=== PATIENT | male | born 1955 | race Caucasian/White ===

== ENCOUNTER 2025-01-18 21:11 | Emergency (ER) | payer MEDICARE, SELFPAY ==
--- OUTSIDE RECORDS SUMMARY | 1999-11-04 10:45 | XMS_ITS | Continuity of Care Document ---
Author Organization [facility] Address [address] [place] [address] Phone Care Team Providers Care Multi Media Specialist Name Role Phone Romeo Mcnally Unavailable Unavailable Advance Directives Directive Yes / No Effective Date File Name No Information Encounters Encounter Description Practice Location Reason(s) For Visit Diagnoses Date Provider Providers Copied on Encounter [facility], [id number] [place] [address] [address], [place], [place], [id number], [place] tel:[phone] [facility] No Information [address] Edward. [address] , [address], [place], [address], [place]. tel:[phone] Family History Family Member Type Diagnosis Age At Onset No Information Payers Payer name Insurance type Covered libertarian ID Authoriza tion(s) No Information Social History Type Description Quantity Date Captured Comments Sex Male Smoking Status No Information Chief Complaint And Reason For Visit No Information Reason For Referral Reason For Referral No Information History Of Present Illness Encounter Date Complaint History Of Prese nt Illness No Information Functional Status Date Functional Assessmen t No Information Instructions Date Instruction Additional Infor mation No Information Assessments Type Assessment Date No Information Patient Care Teams Name Effective Dates (start - stop) Status Members No Information
--- NOTE | ~2025-01-18 | CT_ITS ---
EXAMINATION: CT abdomen pelvis wo con DATE: 01/19/2025 04:09 INDICATION: Flank pain. TECHNIQUE: Computed tomography (CT) of the abdomen and pelvis was performed without intravenous contrast. Automated exposure control and iterative reconstruction technique were employed. The dose-length product was 512.31 mGy-cm. COMPARISON: None. FINDINGS: The visualized portions of the lung bases demonstrate mild atelectasis. No pleural effusion. The heart size is normal. No pericardial effusion. There is a large sliding hiatal hernia. There are cysts in the liver measuring up to 3.5 cm. The gallbladder, spleen, pancreas, adrenal glands, and r ight kidney are normal. There is mild left hydronephrosis. There is a 5 mm stone in proximal left ureter. The prostate is moderately enlarged. There are bilateral inguinal hernias containing fat. There are no dilated loops of bowel. The appendix is normal. There are no pathologically enlarged lymph nodes. There is no free intraperitoneal fluid. There is an umbilical hernia containing fat. There is mild thoracic and lumbar spondylosis. IMPRESSION: 1. 5 mm stone in proximal left ureter with mild left hydronephrosis. 2. Large sliding hiatal hernia. 3. Bilateral inguinal hernias containing fat. 4. Umbilical hernia containing fat. Reviewed, dictated and finalized at location E.
[2025-01-18 21:25] VITALS: BP 143/69; PULSE 75; RESP 18; TEMP 36.8; O2SAT 100
--- NOTE | 2025-01-19 00:50 | ED_ITS ---
HPI - Abdominal Pain General Chief Complaint: Urogenital-Male Stated Complaint: flank pain Time Seen by Provider: 01/19/25 00:43 Source: patient Mode of arrival: ambulatory Limitations: no limitations History of Present Illness HPI narrative: This is a 69 year old male that presents to the ER for left flank pain. Ongoing over the last couple of hours. Reports associated nausea. Reports dark urine. Denies fevers, vomiting, dysuria. Related Data Allergies Allergy/AdvReac Type Severity Reaction Status Date / Time No Known Allergies Allergy Verified 01/19/25 01:24 Review of Systems 2 Review of Systems: All systems reviewed & are unremarkable except as noted in HPI and below PMFSH Past Medical History Medical History (Updated 01/19/25 @ 04:23 by Mary Levi PA-C) Diabetes mellitus Hyperlipidemia Hypertension Exam 2 Narrative: GENERAL: Uncomfortable, well-nourished, and in no acute distress. HEAD: Normocephalic, atraumatic. EYES: EOMI. CHEST: Clear to auscultation. No respiratory distress. No wheezes rales or rhonchi HEART: Regular rate and rhythm. No murmur heard. Normal peripheral pulses. ABDOMEN: Soft, nontender, nondistended, normal active bowel sounds. EXTREMITIES: Normal range of motion. No edema. SKIN: Warm, dry, no rash. NEURO: No focal deficits. Alert and oriented x3. PSYCH: Normal mood and affect Course Vital Signs Vital signs: Vital Signs Temperature 98.2 F 01/18/25 21:25 Pulse Rate 75 01/18/25 21:25 Respiratory Rate 18 01/18/25 21:25 Blood Pressure 143/69 H 01/18/25 21:25 Pulse Oximetry 100 01/18/25 21:25 Oxygen Delivery Room Air 01/18/25 21:25 Temperature 98.2 F 01/18/25 21:25 Pulse Rate 75 01/18/25 21:25 Respiratory Rate 18 01/18/25 21:25 Blood Pressure 143/69 H 01/18/25 21:25 Pulse Oximetry 100 01/18/25 21:25 Oxygen Delivery Room Air 01/18/25 21:25 MDM - Abdominal Pain MDM Narrative Medical decision making narrative: Patient presents emergency department for left abdominal/flank pain. He is afebrile and nontoxic appearing. His vitals are stable. CBC with mild leukocytosis. Metabolic panel with normal appearing kidney function. Urine without evidence of infection. Shows red blood cells. CT abdomen pelvis showing stone in the mid left ureter. Patient updated on his workup and agrees with plan of care. We given follow-up with urology. He was given warnings to return to the ER Differential Diagnosis Differential diagnosis: Likely calculus of kidney and other (UTI) Lab Data Attestation: I reviewed the patient's lab results. 01/19/25 00:57 01/19/25 00:57 Labs: Lab Results 01/19/25 Range/Units 00:57 WBC 13.5 H (4.5-10.0) K/mm3 RBC 5.14 (4.6-6.20) M/mm3 Hgb 15.5 (14.0-18.0) g/dL Hct 45.5 (42.0-52.0) % MCV 88.5 (80-100) fl MCH 30.2 (26-34) pg MCHC 34.1 (32-36) g/dl RDW 11.9 (11.5-14.5) % Plt Count 181 (150-375) k/mm3 MPV 10.0 (7.4-10.4) fl Immature Gran % (Auto) 0.3 (0-0.5) % Neut % (Auto) 86.2 H (45.5-73.1) % Lymph % (Auto) 7.0 L (18.3-44.2) % [place] % (Auto) 6.1 (2.6-8.5) % Eos % (Auto) 0.1 (0-4.4) % Baso % (Auto) 0.3 (0.2-1.2) % Lymph # (Auto) 0.95 (0.9-3.2) K/mm3 [place] # (Auto) 0.8 H (0.1-0.6) K/mm3 Eos # (Auto) 0.0 (0-0.3) K/mm3 Baso # (Auto) 0.0 (0.0-0.1) K/mm3 Abs Immat Gran (auto) 0.04 H (0.00-0.031) K/mm3 Absolute Neuts (auto) 11.7 H (1.3-6.7) K/mm3 Absolute Nucleated RBC 0.000 (0.0-0.012) K/mm3 Nucleated RBC % 0.0 (0.0-0.2) % Sodium 139 (137-145) mmol/L Potassium 4.4 (3.4-5.0) mmol/L Chloride 103 (98-107) mmol/L Carbon Dioxide 22 (22-30) mmol/L Anion Gap 14 H (4-12) mmol/L BUN 23 H (9-20) mg/dL Creatinine 1.23 (0.7-1.3) mg/dL Estim Creat Clear Calc 66 ml/min Estimated GFR 59 (59 - ) Glucose 206 H (65-110) mg/dL Calcium 10.3 H (8.4-10.2) mg/dL Total Bilirubin 1.1 (0.2-1.3) mg/dL AST 37 (17-59) U/L ALT 28 (6-50) U/L Alkaline Phosphatase 75 (38-126) U/L Total Protein 7.4 (6.3-8.2) g/dL Albumin 4.4 (3.5-5.1) g/dL Urine Color Yellow (Yellow) Urine Appearance Cloudy H (Clear) Urine pH 6.0 (5.0-9.0) Ur Specific [place] 1.028 (1.001-1.035) Urine Protein 2+ H (Negative) mg/dL Urine Glucose (UA) Negative (Negative) mg/dL Urine Ketones 1+ H (Negative) mg/dL Ur Blood (Man) 3+ H (Negative) Urine Nitrate Negative (Negative) Urine Bilirubin Negative (Negative) Urine Urobilinogen 1.0 (<2.0) mg/dL Add Ur Microanalysis Reviewed Leukocyte Esterase Rfl Negative (Negative) CATHERINE/UL Urine RBC >100 H (0-2) /hpf Urine WBC 0-5 (0-3) /hpf Ur Squamous Epith Cells None seen (Few) /hpf Calcium Oxalate Crystal Present (None) /hpf Urine Bacteria None seen /hpf Urine Casts 0-2 Imaging Data My impression: CT abd/pelvis: Left 4mm mid ureteral stone. Large hiatal hernia Radiologist's impression: ITS Impressions Abdomen/Pelvis CT 01/19/25 07:05 IMPRESSION: 1. 5 mm stone in proximal left ureter with mild left hydronephrosis. 2. Large sliding hiatal hernia. 3. Bilateral inguinal hernias containing fat. 4. Umbilical hernia containing fat. Critical Care Time Critical Care Time Critical Care Time: No Discharge Plan Discharge Clinical Impression: Ureterolithiasis Patient Disposition: Home Condition: Improved Instructions: Kidney Stones (ED), How to Strain Your Urine (ED) Additional Instructions: Return to the ER if you experience fever, abdominal pain with nausea and vomiting, you are unable to keep down liquids or solids, blood in the stool, pain or burning with urination, blood in the urine or any other symptoms that are concerning to you Remain well hydrated. [id number] pain medication as needed. Prescribed pain medication as needed. Continue tamsulosin. Strain your urine Follow up with Urology Patient Language: Yoruba Prescriptions: New hydrocodone-acetaminophen 5-325 mg tablet 1 tablet PO Q6H PRN (Reason: pain) Qty: 20 0RF Follow-up/Referrals: Brent Flores MD [Physician, Urology] UNKNOWN,DOCTOR [Non-Staff]
[2025-01-19 01:07] LABS: Hematocrit 45.5 % (42.0-52.0); Hemoglobin 15.5 g/dL (14.0-18.0); Immature Granulocyte Percent A 0.3 % (0-0.5); Lymphocytes Absolute Auto 0.95 K/mm3 (0.9-3.2); Mean Corpuscular HGB Conc 34.1 g/dl (32-36); Mean Corpuscular Hemoglobin 30.2 pg (26-34); Mean Corpuscular Volume 88.5 fl (80-100); Nucleated Red Blood Cells Absolute Auto 0.000 K/mm3 (0.0-0.012); Nucleated Red Blood Cells Perc 0.0 % (0.0-0.2); Platelet Count Result 181 k/mm3 (150-375); Red Blood Count 5.14 M/mm3 (4.6-6.20); White Blood Count 13.5 K/mm3 (4.5-10.0)
[2025-01-19] MEDS: ONDANSETRON INJ 4 MG/2 ML VIAL IV PUSH (01:14)
[2025-01-19] MEDS: MORPHINE SULFATE (*CRX) 4 MG/ML INJ IV PUSH (01:14)
[2025-01-19 01:21] LABS: Add Urine Microscopic? YES; Appearance Urine Cloudy (Clear); Glucose Urine UA Negative (Negative); Leukocyte Esterase Ur Negative LEU/UL (Negative); Need Manual Microscopic Reviewed; Nitrate Urine Negative (Negative); Non Pathogenic Casts 0-2; Specific Grav Ur 1.028 (1.001-1.035)
[2025-01-19 01:23] LABS: Alanine Aminotransferase 28 U/L (6-50); Albumin Level 4.4 g/dL (3.5-5.1); Alkaline Phosphatase 75 U/L (38-126); Anion Gap 14 mmol/L (4-12); Aspartate Amino Transferase 37 U/L (17-59); Bilirubin,Total 1.1 mg/dL (0.2-1.3); Blood Urea Nitrogen 23 mg/dL (9-20); Calcium 10.3 mg/dL (8.4-10.2); Carbon Dioxide 22 mmol/L (22-30); Chloride 103 mmol/L (98-107); Estimated CRCL calculation 66 ml/min; Estimated Glomerular Filt Rate 59; Glucose 206 mg/dL (65-110); Potassium 4.4 mmol/L (3.4-5.0); Sodium 139 mmol/L (137-145); Total Protein 7.4 g/dL (6.3-8.2)
--- OUTSIDE RECORDS SUMMARY | 2025-01-19 01:43 | XMS_ITS | Encounter Summary ---
Author Organization [facility] Address [address] [place] [address] Care Team Providers Care Running Instructor Name Role Phone Jared Levin MD Primary Care Provider [phone] Encounter Details Date Type Department Care Team (Late st Contact Info) Description 12/21/2024 Results Follow-Up [facility] Family Medicine at [address] [place] [address] Jared Levin MD [address] [place] [address] [address] [place] [address] CBC with auto differential, Comprehensive metabolic panel, Lipid panel, Additional followed-up results: 2 Social History Tobacco Use Types Packs/Day Years Used Date Smoking Tobacco: Never Smokeless Tobacco: Never AUDIT-C Answer Date Recorded Q1: How often do you have a drink containing alc ohol? Monthly or less 09/05/2024 Q2: How many drinks containi ng alcohol do you have on a typical day when you are drinking? 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
--- OUTSIDE RECORDS SUMMARY | 2025-01-19 01:43 | XMS_ITS | Data Portability ---
Author Organization [facility] [employer] [facility], [employer] Address [address] [place] [address] Care Team Providers Care Plumbing Assembler Name Role Phone STEPHANIE ABERNATHY Primary Care Provider REJI FUENTES [employer]ic [phone] Assessment Encounter Date Assessment Date Assessment LastModified by Organization Details LastModified Time 06/05/2020 06/05/2020 Patient presente d for follow up. Studies ordered as below. Discussed plan with patient/caregiver , who expressed understanding. Follow up as noted below. Not available 06/05/2020 10:25:10 09/29/2020 09/29/2020 Patient presente d for follow up. Studies ordered as below. Discussed plan with patient/caregiver , who expressed understanding. Follow up as noted below. Not available 09/29/2020 08:55:14 03/31/2021 03/31/2021 Patient presente d for follow up. Studies ordered as below. Discussed plan with patient/caregiver , who expressed understanding. Follow up as noted below. Not available 03/31/2021 15:36:38 10/13/2021 10/13/2021 Patient presente d for follow up. Studies ordered as below. Discussed plan with patient/caregiver , who expressed understanding. Follow up as noted below. Not available 10/13/2021 09:40:01 03/31/2022 03/31/2022 Patient presente d for follow up. Studies ordered as below. Discussed plan with patient/caregiver , who expressed understanding. Follow up as noted below. Patient presented to office today for their Medicare Annual Wellness Visit. Education was provided on healthy nutrition, including a diet rich in fruits and vegetables, minimizing simple carbohydrates, salt, and saturated fats. Encouraged regular cardiovascular exercise such as walking at least 30 minutes daily, 5 times per week. Emphasized preventive health measures and educated pt on fall prevention and community-based lifestyle interventions to help reduce health risks and promote healthy living. Not available 03/31/2022 09:24:16 Plan of Treatment Reminders Order Date Submit Date Provider Last Modified By Organization Details Last Modified Time Details Appointments None recorded. Lab PSA, serum or plasma 2021 [facility], [address], [address], [place], [address], 16:12:33 CBC w/ auto diff 2021 [facility], 2022 [address]ova, [address], [place], [address], 16:12:30 CMP, serum or plasma 2021 [facility], 2022 Sh[address]ova, [address], [place], [address], 16:12:31 HbA1c (hemoglobi n A1c), blood 2021 [facility], 2022 [address]ova, [address], [place], [address], 16:12:34 C-peptide, serum 2021 [facility], 2022 [address]ova, [address], [place], [address], 16:12:35 albumin/cr eatinine, mass ratio, urine 2021 [facility], 2022 [address]ova, [address], [place], [address], 16:12:33 TSH + free T4, serum 2021 [facility], 2022 [address]ova, [address], [place], [address], 3 16:12:29 lipid panel w/ direct LDL, serum 2021 [facility], 2022 Sh[address]ova, [address], [place], [address], 3 16:12:32 vitamin D, 25-hydroxy , total, serum 2021 [facility], 2022 [address]ova, [address], [place], [address], 3 16:12:36 HbA1c (hemoglobi n A1c), blood 2021 [facility], 2022 Sh[address] Cordova, [address], [place], [address], 5 13:08:07 CMP, serum or plasma 2021 022 [facility], 2022 Shayna Cordova, [address], [place], [address], 2 13:39:25 C-peptide, serum 2021 [facility], 2022 Sh[address]ova, [address], [place], [address], 2 13:39:25 lipid panel w/ direct LDL, serum 2020 021 [facility], 2022 Shayna Cordova, [address], [place], [address], 1 09:37:42 PSA, serum or plasma 2020 [facility], 2022 Sh[address]ova, [address], [place], [address], 1 09:37:44 microalbum in/creatin ine, mass ratio, urine 2020 [facility], [address], [address], [place], [address], 09:37:43 CMP, serum or plasma 2020 [facility], 20[address]ova, [address], [place], [address], 09:37:41 HbA1c (hemoglobi n A1c), blood 2020 [facility], 20[address], [address], [place], [address], 09:37:45 TSH, ultra-sens itive, serum 2020 [facility], 2022 Sh[address]ova, [address], [place], [address], 09:37:45 T4, free, serum 2020 [facility], 2022 Sh[address]ova, [address], [place], [address], 09:37:47 vitamin D, 25-hydroxy , total, serum 2020 [facility], 2022 [address]ova, [address], [place], [address], 09:37:46 lipid panel w/ direct LDL, serum 2020 [facility], 2022 Sh[address] Cordova, [address], [place], [address], 1 07:37:11 TSH, ultra-sens itive, serum 2020 [facility], 20[address]ova, [address], [place], [address], 1 07:37:11 CBC w/ auto diff 2020 021 [facility], 2022 [address]ova, [address], [place], [address], 1 07:37:09 CMP, serum or plasma 2020 021 [facility], 2022 Sh[address]ova, [address], [place], [address], 1 07:37:10 vitamin D, 25-hydroxy , total, serum 2020 021 [facility], 2022 [address]ova, [address], [place], [address], 1 07:37:12 testostero ne, free + total, serum 2020 021 [facility], 2022 [address]ova, [address], [place], [address], 1 07:37:12 Referral gastroente rologist referral 2021 022 ewa Fuentes MD, [address], [address], [place], [address], 5 13:08:34 ophthalmol ogist referral 2020 021 [facility], [address], [place], [address], 2 08:30:37 Procedures None recorded. Surgeries None recorded. Imaging electrocar diogram 2021 022 [facility] [employer], [address] [facility] [address] , [address], [place], [address], 2 17:44:04 XR, cervical spine [address] [place] [address] (Imaging), [address], [place], [address], 09:23:39 CT, head, w/o contrast [address] [place] [address] (Imaging), [address], [place], [address], 09:30:37 Medication Orders metformin 500 mg tablet 2021 022 [facility] [address], [address], [place], [address], 09:48:53 atorvastat in 40 mg tablet 2020 [facility] [address], [address], [place], [address], 15:57:53 ezetimibe 10 mg tablet 2020 [facility] [address], [address], [place], [address], 15:57:49 tamsulosin 0.4 mg capsule 2020 [facility] [address], [address], [place], [address], 15:57:49 lisinopril 5 mg tablet 2020 [facility] [address], [address], [place], [address], 15:57:48 aspirin 81 mg tablet,del ayed release 2020 [facility] [address], [address], [place], [address], 15:57:51 metformin 500 mg tablet 2020 [facility] [address], [address], [place], [address], 15:57:51 pantoprazo le 40 mg tablet,del ayed release 2020 [facility] [address], [address], [place], [address], 09:41:50 paroxetine 30 mg tablet 2020 [facility] [address], [address], [place], [address], 15:57:50 Vitamin D3 125 mcg (5,000 unit) tablet 2020 [facility] [address], [address], [place], [address], 15:57:47 atorvastat in 40 mg tablet 2020 [facility] [address], [address], [place], [address], 09:23:11 ezetimibe 10 mg tablet 2020 [facility] [address], [address], [place], [address], 09:23:13 tamsulosin 0.4 mg capsule 2020 [facility] [address], [address], [place], [address], 09:23:15 lisinopril 5 mg tablet 2020 [facility] [address], [address], [place], [address], 09:23:13 aspirin 81 mg tablet,del ayed release 2020 021 [facility] [address], [address], [place], [address], 09:23:19 metformin 500 mg tablet 2020 021 [facility] [address], [address], [place], [address], 09:23:12 pantoprazo le 40 mg tablet,del ayed release 2020 021 [facility] [address], [address], [place], [address], 09:41:50 paroxetine 30 mg tablet 2020 021 [facility] [address], [address], [place], [address], 09:23:12 Vitamin D3 125 mcg (5,000 unit) tablet 2020 021 [facility] [address], [address], [place], [address], 09:23:16 Patient TargetsNo targets recorded. Patient Instructions Encounter Date Encounter Id Patient Instructions Last Modified By Organization Details Last Modified Time 06/05/2020 [id number] neck pain: care instructions mshenouda Not available 06/05/2020 10:41:41 learning about a closed head injury mshenouda Not available 06/05/2020 10:41:41 09/29/2020 [id number] body mass index: care instructions mshenouda Not available 09/29/2020 09:22:58 learning about healthy weight [place]hen[place]da Not available 09/29/2020 09:22:58 03/31/2021 [id number] advised to lose weight [facility] Not available 03/31/2021 15:57:41 10/13/2021 [id number] body mass index: care instructions mshenouda Not available 10/13/2021 10:31:39 learning about healthy weight mshenouda Not available 10/13/2021 10:31:39 03/31/2022 [id number] diverticulosis: care instructions ms[place]da Not available 03/31/2022 09:48:45 learning about diverticulosis and diverticulitis mshenouda Not available 03/31/2022 09:48:46 medicare preventive services guide mshenouda Not available 03/31/2022 09:48:45 advance care planning: care instructions mshenouda Not available 03/31/2022 09:48:45 high cholesterol : care instructions mshenouda Not available 03/31/2022 09:48:46 cluster headache : care instructions mshenouda Not available 03/31/2022 09:48:46 body mass index: care instructions mshenouda Not available 03/31/2022 09:48:46 learning about healthy weight mshenouda Not available 03/31/2022 09:48:45 Discussed and explained advance directives such as standard forms to the patient. Face to face discussion lasted for a duration of _3__ minutes. mshenouda Not available 03/31/2022 09:38:38 Reason for Referral [employer] Specialist Referral for Diabetes mellitus Referring Physician: Tushar Shetty, Internal Medicine, Encounter Date: 03/31/2021 [employer]ic Referral for Screening for malignant neoplasm of colon Referring Physician: Stephanie Abernathy, Internal Medicine, Encounter Date: 10/13/2021 Results Created Date Observation Date Name Description Value Unit Range Abnormal Flag Note LastModifiedBy Organization Detail LastModifiedTime 06/06/19 21 06/06/2020 testo stero ne, free + total , serum testosterone , serum 196 NG/dL 264-91 6 below low normal Adult male refer ence inter silvia is based on a popul ation of healt hy nonob marielle males (BMI <30) betwe en 19 and 39 years old. Cherelle salguero et.al . JCEM 2017, 102;1 161-1 173. PMID: 77596 103. Not Available [facility] ([facility]) [address] [facility], [place], [address], 06/10/2020 07:37:12 06/06/1906/10/2020 testo stero ne, free + total , serum free testosterone (direct) 2.9 pg/mL 6.6-18 .1 below low normal Not Available [facility] ([facility]) [address], [place], [address], 06/10/2020 07:37:12 09/30/19 21 09/30/2020 CBC WITH DIFFE RENTI AL/PL ATELE T WBC 6.8 x10e3 /uL 3.4-10 .8 Not Available [facility] ([facility]) [address] [place], [address], 09/30/2020 07:37:09 09/30/1909/30/2020 CBC WITH DIFFE RENTI AL/PL ATELE T RBC 5.27 x10e6 /uL 4.14-5 .80 Not Available [facility] ([facility]) [address] [facility], [place], [address], 09/30/2020 07:37:09 09/30/1909/30/2020 CBC WITH DIFFE RENTI AL/PL ATELE T hemoglobin 15.4 g/dL 13.0-1 7.7 Not Available [facility] ([facility]) [address] [place], [address], 09/30/2020 07:37:09 09/30/1909/30/2020 CBC WITH DIFFE RENTI AL/PL ATELE T hematocrit 47.1 % 37.5-5 1.0 Not Available [facility] ([facility]) [address] [place], [address], 09/30/2020 07:37:09 09/30/1909/30/2020 CBC WITH DIFFE RENTI AL/PL ATELE T MCV 89 fL 79-97 Not Available [facility] ([facility]) [address] [place], [address], 09/30/2020 07:37:09 09/30/19 21 09/30/2020 CBC WITH DIFFE RENTI AL/PL ATELE T MCH 29.2 pg 26.6-3 3.0 Not Available [facility] ([facility]) [address] [facility] [facility], [place], [address], 09/30/2020 07:37:09 09/30/19 21 09/30/2020 CBC WITH DIFFE RENTI AL/PL ATELE T MCHC 32.7 g/dL 31.5-3 5.7 Not Available [facility] ([facility]) [address] [facility], [place], [address], 09/30/2020 07:37:09 09/30/19 21 09/30/2020 CBC WITH DIFFE RENTI AL/PL ATELE T RDW 11.9 % 11.6-1 5.4 Not Available [facility] ([facility]) [address] [facility] [facility], [place], [address], 09/30/2020 07:37:09 09/30/19 21 09/30/2020 CBC WITH DIFFE RENTI AL/PL ATELE T platelets 213 x10e3 /uL 150-45 0 Not Available [facility] ([facility]) [address] [facility] [facility], [place], [address], 09/30/2020 07:37:09 09/30/1909/30/2020 CBC WITH DIFFE RENTI AL/PL ATELE T neutrophils 67 % not estab. Not Available [facility] ([facility]) [address] [facility], [place], [address], 09/30/2020 07:37:09 09/30/1909/30/2020 CBC WITH DIFFE RENTI AL/PL ATELE T lymphs 24 % not estab. Not Available [facility] ([facility]) [address] [place], [address], 09/30/2020 07:37:09 09/30/19 21 09/30/2020 CBC WITH DIFFE RENTI AL/PL ATELE T monocytes 7 % not estab. Not Available [facility] ([facility]) [address] [place], [address], 09/30/2020 07:37:09 09/30/19 21 09/30/2020 CBC WITH DIFFE RENTI AL/PL ATELE T eos 2 % not estab. Not Available [facility] ([facility]) [address] [facility] [facility], [place], [address], 09/30/2020 07:37:09 09/30/1909/30/2020 CBC WITH DIFFE RENTI AL/PL ATELE T basos 0 % not estab. Not Available [facility] ([facility]) [address] [facility], [place], [address], 09/30/2020 07:37:09 09/30/1909/30/2020 CBC WITH DIFFE RENTI AL/PL ATELE T immature cells ADVICE NURSE Not Available [facility] ([facility]) [address] [place], [address], 09/30/2020 07:37:09 09/30/19 21 09/30/2020 CBC WITH DIFFE RENTI AL/PL ATELE T neutrophils (absolute) 4.5 x10e3 /uL 1.4-7. 0 Not Available [facility] ([facility]) [address] [facility], [place], [address], 09/30/2020 07:37:09 09/30/19 21 09/30/2020 CBC WITH DIFFE RENTI AL/PL ATELE T lymphs (absolute) 1.6 x10e3 /uL 0.7-3. 1 Not Available [facility] ([facility]) [address] [place], [address], 09/30/2020 07:37:09 09/30/19 21 09/30/2020 CBC WITH DIFFE RENTI AL/PL ATELE T monocytes(ab solute) 0.5 x10e3 /uL 0.1-0. 9 Not Available [facility] ([facility]) [address] [facility], [place], [address], 09/30/2020 07:37:09 09/30/19 21 09/30/2020 CBC WITH DIFFE RENTI AL/PL ATELE T eos (absolute) 0.1 x10e3 /uL 0.0-0. 4 Not Available [facility] ([facility]) [address] [facility], [place], [address], 09/30/2020 07:37:09 09/30/19 21 09/30/2020 CBC WITH DIFFE RENTI AL/PL ATELE T baso (absolute) 0.0 x10e3 /uL 0.0-0. 2 Not Available [facility] ([facility]) [address] [facility], [place], [address], 09/30/2020 07:37:09 09/30/19 21 09/30/2020 CBC WITH DIFFE RENTI AL/PL ATELE T immature granulocytes 0 % not estab. Not Available [facility] ([facility]) [address] [facility] [facility], [place], [address], 09/30/2020 07:37:09 09/30/19 21 09/30/2020 CBC WITH DIFFE RENTI AL/PL ATELE T immature grans (abs) 0.0 x10e3 /uL 0.0-0. 1 Not Available [facility] ([facility]) [address] [facility] [facility], [place], [address], 09/30/2020 07:37:09 09/30/1909/30/2020 CBC WITH DIFFE RENTI AL/PL ATELE T NRBC ADVICE NURSE Not Available [facility] ([facility]) [address] [facility], [place], [address], 09/30/2020 07:37:09 09/30/19 21 09/30/2020 CBC WITH DIFFE CARL[place] AL/PL ATELE T hematology comments: ADVICE NURSE Not Available [facility] ([facility]) [address] [facility], [place], [address], 09/30/2020 07:37:09 09/30/19 21 09/30/2020 COMP. METAB OLIC PANEL (14) glucose 113 mg/dL 65-99 above high normal Not Available [facility] ([facility]) [address] [facility], [place], [address], 09/30/2020 07:37:10 09/30/19 21 09/30/2020 COMP. METAB OLIC PANEL (14) BUN 15 mg/dL 8-27 Not Available [facility] ([facility]) [address] [facility], [place], [address], 09/30/2020 07:37:10 09/30/19 21 09/30/2020 COMP. METAB OLIC PANEL (14) creatinine 0.85 mg/dL 0.76-1 .27 Not Available [facility] ([facility]) [address] [facility] [facility], [place], [address], 09/30/2020 07:37:10 09/30/19 21 09/30/2020 COMP. METAB OLIC PANEL (14) eGFR if nonafricn AM 93 mL/mi n/1.7 3 >59 Not Available [facility] ([facility]) [address] [place], [address], 09/30/2020 07:37:10 09/30/19 21 09/30/2020 COMP. METAB OLIC PANEL (14) eGFR if africn AM 107 mL/mi n/1.7 3 >59 Lab delia curre ntly repor ts eGFR in compl iance with the curre nt recom menda tions of the [facility] ation . [facility] will updat e repor ting as new guide lines are publi shed from the NKF-A SN Task force . Not Available [facility] ([facility]) [address] [facility], [place], [address], 09/30/2020 07:37:10 09/30/19 21 09/30/2020 COMP. METAB OLIC PANEL (14) BUN/creatini ne ratio 18 10-24 Not Available [facility] ([facility]) [address] [facility], [place], [address], 09/30/2020 07:37:10 09/30/19 21 09/30/2020 COMP. METAB OLIC PANEL (14) sodium 142 mmol/ L 134-14 4 Not Available [facility] ([facility]) [address] [facility] [place], [address], 09/30/2020 07:37:10 09/30/19 21 09/30/2020 COMP. METAB OLIC PANEL (14) potassium 4.3 mmol/ L 3.5-5. 2 Not Available [facility] ([facility]) [address] [facility] [facility], [place], [address], 09/30/2020 07:37:10 09/30/19 21 09/30/2020 COMP. METAB OLIC PANEL (14) chloride 104 mmol/ L 96-106 Not Available [facility] ([facility]) [address] [facility], [place], [address], 09/30/2020 07:37:10 09/30/19 21 09/30/2020 COMP. METAB OLIC PANEL (14) carbon dioxide, total 25 mmol/ L 20-29 Not Available [facility] ([facility]) [address] [facility], [place], [address], 09/30/2020 07:37:10 09/30/19 21 09/30/2020 COMP. METAB OLIC PANEL (14) calcium 9.8 mg/dL 8.6-10 .2 Not Available [facility] ([facility]) [address] [facility] [facility], [place], [address], 09/30/2020 07:37:10 09/30/19 21 09/30/2020 COMP. METAB OLIC PANEL (14) protein, total 7.0 g/dL 6.0-8. 5 Not Available [facility] ([facility]) [address], [place], [address], 09/30/2020 07:37:10 09/30/19 21 09/30/2020 COMP. METAB OLIC PANEL (14) albumin 4.4 g/dL 3.8-4. 8 Not Available [facility] ([facility]) [address], [place], [address], 09/30/2020 07:37:10 09/30/19 21 09/30/2020 COMP. METAB OLIC PANEL (14) globulin, total 2.6 g/dL 1.5-4. 5 Not Available [facility] ([facility]) [address], [place], [address], 09/30/2020 07:37:10 09/30/19 21 09/30/2020 COMP. METAB OLIC PANEL (14) A/G ratio 1.7 1.2-2. 2 Not Available [facility] ([facility]) [address], [place], [address], 09/30/2020 07:37:10 09/30/19 21 09/30/2020 COMP. METAB OLIC PANEL (14) bilirubin, total 0.8 mg/dL 0.0-1. 2 Not Available [facility] ([facility]) [address], [place], [address], 09/30/2020 07:37:10 09/30/19 21 09/30/2020 COMP. METAB OLIC PANEL (14) alkaline phosphatase 82 IU/L 48-121 Not Available [facility] ([facility]) [address], [place], [address], 09/30/2020 07:37:10 09/30/19 21 09/30/2020 COMP. METAB OLIC PANEL (14) AST (SGOT) 14 IU/L 0-40 Not Available [facility] ([facility]) [address] [place], [address], 09/30/2020 07:37:10 09/30/19 21 09/30/2020 COMP. METAB OLIC PANEL (14) ALT (SGPT) 15 IU/L 0-44 Not Available [facility] ([facility]) [address] [place], [address], 09/30/2020 07:37:10 09/30/19 21 09/30/2020 LP+LD L DIREC T cholesterol, total 149 mg/dL 100-19 9 Not Available [facility] ([facility]) [address] [place], [address], 09/30/2020 07:37:11 09/30/19 21 09/30/2020 LP+LD L DIREC T triglyceride s 180 mg/dL 0-149 above high normal Not Available [facility] ([facility]) [address] [place], [address], 09/30/2020 07:37:11 09/30/19 21 09/30/2020 LP+LD L DIREC T HDL cholesterol 52 mg/dL >39 Not Available [facility] ([facility]) [address] [place], [address], 09/30/2020 07:37:11 09/30/19 21 09/30/2020 LP+LD L DIREC T VLDL cholesterol aliza 30 mg/dL 5-40 Not Available [facility] ([facility]) [address] [place], [address], 09/30/2020 07:37:11 09/30/19 21 09/30/2020 LP+LD L DIREC T LDL chol calc ([facility]) 67 mg/dL 0-99 Not Available [facility] ([facility]) [address], [place], [address], 09/30/2020 07:37:11 09/30/19 21 09/30/2020 LP+LD L DIREC T comment: ADVICE NURSE Not Available [facility] ([facility]) [address] [place], [address], 09/30/2020 07:37:11 09/30/1909/30/2020 LP+LD L DIREC T LDL chol. (direct) 76 mg/dL 0-99 Not Available [facility] ([facility]) [address] [facility] [place] [place], [address], 09/30/2020 07:37:11 09/30/1909/30/2020 TSH TSH 3.190 uIU/m L 0.450- 4.500 Not Available [facility] ([facility]) [address] [facility] [place], [address], 09/30/2020 07:37:11 09/30/19 21 09/30/2020 VITAM IN D, 25-HY DROXY vitamin D, 25-hydroxy 40.5 NG/mL 30.0-1 00.0 Vitam in D defic iency has been defin ed by the Insti tute of Medic ine and an Endoc rine Socie ty pract ice guide line as a level of serum 25-OH vitam in D less than 20 ng/mL (1,2) . The Endoc rine Socie ty went on to [facility] er defin e vitam in D insuf ficie ncy as a level betwe en 21 and 29 ng/mL (2). 1. IOM (Inst itute of Medic ine). 2010. Dieta ry refer ence mamadou es for calci um and D. Tiffanie crocker [place]: The [facility] Press . 2. Chiara palmer [place], Ghassan ey [place], Cordelia off-F errar i CUNHA, et al. Evalu ation , treat ment, and preve ntion of vitam in D defic iency : an Endoc rine Socie ty clini aliza pract ice guide line. JCEM. 2010; 96(7) :1911 -30. Not Available [facility] ([facility]) [address] [facility], [place], [address], 09/30/2020 07:37:12 04/01/20 21 04/02/2021 COMP. METAB OLIC PANEL (14) glucose 118 mg/dL 65-99 above high normal Not Available [facility] ([facility]) [address] [facility] [place], [address], 04/02/2021 09:37:41 04/01/20 21 04/02/2021 COMP. METAB OLIC PANEL (14) BUN 19 mg/dL 8-27 Not Available [facility] ([facility]) [address] [facility] [place], [address], 04/02/2021 09:37:41 04/01/20 21 04/02/2021 COMP. METAB OLIC PANEL (14) creatinine 0.92 mg/dL 0.76-1 .27 Not Available [facility] ([facility]) [address] [facility] [place], [address], 04/02/2021 09:37:41 04/01/20 21 04/02/2021 COMP. METAB OLIC PANEL (14) eGFR if nonafricn AM 88 mL/mi n/1.7 3 >59 Not Available [facility] ([facility]) [address] [place], [address], 04/02/2021 09:37:41 04/01/20 21 04/02/2021 COMP. METAB OLIC PANEL (14) eGFR if africn AM 102 mL/mi n/1.7 3 >59 In accor dance with recom menda tions from the NKF-A SN Task force , [facility] sandoval is in the proce ss of updat ing its eGFR calcu latio n to the 2020 CKD-E PI creat inine equat ion that estim ates kidne y funct ion witho ut a race varia ble. Not Available [facility] ([facility]) [address] [facility], [place], [address], 04/02/2021 09:37:41 04/01/20 21 04/02/2021 COMP. METAB OLIC PANEL (14) BUN/creatini ne ratio 21 10-24 Not Available [facility] ([facility]) [address] [facility], [place], [address], 04/02/2021 09:37:41 04/01/20 21 04/02/2021 COMP. METAB OLIC PANEL (14) sodium 142 mmol/ L 134-14 4 Not Available [facility] ([facility]) [address] [facility], [place], [address], 04/02/2021 09:37:41 04/01/20 21 04/02/2021 COMP. METAB OLIC PANEL (14) potassium 4.4 mmol/ L 3.5-5. 2 Not Available [facility] ([facility]) [address] [facility], [place], [address], 04/02/2021 09:37:41 04/01/20 21 04/02/2021 COMP. METAB OLIC PANEL (14) chloride 105 mmol/ L 96-106 Not Available [facility] ([facility]) [address] [place], [address], 04/02/2021 09:37:41 04/01/20 21 04/02/2021 COMP. METAB OLIC PANEL (14) carbon dioxide, total 22 mmol/ L 20-29 Not Available [facility] ([facility]) [address] [place], [address], 04/02/2021 09:37:41 04/01/20 21 04/02/2021 COMP. METAB OLIC PANEL (14) calcium 9.6 mg/dL 8.6-10 .2 Not Available [facility] ([facility]) [address] [place], [address], 04/02/2021 09:37:41 04/01/20 21 04/02/2021 COMP. METAB OLIC PANEL (14) protein, total 6.9 g/dL 6.0-8. 5 Not Available [facility] ([facility]) [address] [place], [address], 04/02/2021 09:37:41 04/01/20 21 04/02/2021 COMP. METAB OLIC PANEL (14) albumin 4.3 g/dL 3.8-4. 8 Not Available [facility] ([facility]) [address] [place], [address], 04/02/2021 09:37:41 04/01/20 21 04/02/2021 COMP. METAB OLIC PANEL (14) globulin, total 2.6 g/dL 1.5-4. 5 Not Available [facility] ([facility]) [address] [place], [address], 04/02/2021 09:37:41 04/01/20 21 04/02/2021 COMP. METAB OLIC PANEL (14) A/G ratio 1.7 1.2-2. 2 Not Available [facility] ([facility]) [address] [place], [address], 04/02/2021 09:37:41 04/01/20 21 04/02/2021 COMP. METAB OLIC PANEL (14) bilirubin, total 0.8 mg/dL 0.0-1. 2 Not Available [facility] ([facility]) [address] [place], [address], 04/02/2021 09:37:41 04/01/20 21 04/02/2021 COMP. METAB OLIC PANEL (14) alkaline phosphatase 72 IU/L 44-121 Ple ase note refer ence inter silvia ruiz e Not Available [facility] ([facility]) [address] [place], [address], 04/02/2021 09:37:41 04/01/20 21 04/02/2021 COMP. METAB OLIC PANEL (14) AST (SGOT) 15 IU/L 0-40 Not Available [facility] ([facility]) [address] [place], [address], 04/02/2021 09:37:41 04/01/20 21 04/02/2021 COMP. METAB OLIC PANEL (14) ALT (SGPT) 14 IU/L 0-44 Not Available [facility] ([facility]) [address] [place], [address], 04/02/2021 09:37:41 04/01/20 21 04/02/2021 LP+LD L DIREC T cholesterol, total 144 mg/dL 100-19 9 Not Available [facility] ([facility]) [address] [place], [address], 04/02/2021 09:37:42 04/01/20 21 04/02/2021 LP+LD L DIREC T triglyceride s 83 mg/dL 0-149 Not Available [facility] ([facility]) [address] [place], [address], 04/02/2021 09:37:42 04/01/20 21 04/02/2021 LP+LD L DIREC T HDL cholesterol 54 mg/dL >39 Not Available [facility] ([facility]) [address] [place], [address], 04/02/2021 09:37:42 04/01/20 21 04/02/2021 LP+LD L DIREC T VLDL cholesterol aliza 16 mg/dL 5-40 Not Available [facility] ([facility]) [address] [place], [address], 04/02/2021 09:37:42 04/01/20 21 04/02/2021 LP+LD L DIREC T LDL chol calc (nih) 74 mg/dL 0-99 Not Available [facility] ([facility]) [address] [facility], [place], [address], 04/02/2021 09:37:42 04/01/20 21 04/02/2021 LP+LD L DIREC T comment: ADVICE NURSE Not Available [facility] ([facility]) [address] [facility], [place], [address], 04/02/2021 09:37:42 04/01/20 21 04/02/2021 LP+LD L DIREC T LDL chol. (direct) 76 mg/dL 0-99 Not Available [facility] ([facility]) [address] [facility], [place], [address], 04/02/2021 09:37:42 04/01/20 21 04/02/2021 ALBUM IN/CR EAT RATIO , RANDO M UR creatinine, urine 218.6 mg/dL not estab. Not Available [facility] ([facility]) [address] [facility], [place], [address], 04/02/2021 09:37:43 04/01/20 21 04/02/2021 ALBUM IN/CR EAT RATIO , RANDO M UR albumin, urine 7.7 ug/mL not estab. Not Available [facility] ([facility]) [address] [place], [address], 04/02/2021 09:37:43 04/01/20 21 04/02/2021 ALBUM IN/CR EAT RATIO , RANDO M UR alb/creat ratio 4 mg/g_ creat 0-29 Lesley l: 0 - 29 Moder ately incre ased: 30 - 300 Sever lisa incre ased: >300 Not Available [facility] ([facility]) [address] [facility], [place], [address], 04/02/2021 09:37:43 04/01/20 21 04/01/2021 PSA TOTAL (REFL EX TO FREE) reflex criteria Commen t The perce nt free PSA is perfo rmed on a refle x basis only when the total PSA is betwe en 4.0 and 10.0 ng/mL . Not Available [facility] ([facility]) [address] [facility], [place], [address], 04/02/2021 09:37:44 04/01/20 21 04/02/2021 PSA TOTAL (REFL EX TO FREE) prostate specific Ag 3.3 NG/mL 0.0-4. 0 Sofie ECLIA metho dolog y. Accor ding to the Ameri can Urolo gical Assoc iatio n, Serum PSA shoul d decre ase and remai n at undet ectab le level s after radic al prost atect gloria. The AUA defin es bioch emica l recur rence as an initi al PSA value 0.2 ng/mL or great er follo wed by a subse quent confi rmato ry PSA value 0.2 ng/mL or great er. Value s obtai ledy with diffe rent assay metho ds or kits canno t be used inter ruiz eably . Resul ts canno t be inter prete d as absol leslie evide nce of the prese nce or absen ce of marlene ramsay se. Not Available [facility] ([facility]) [address] [facility], [place], [address], 04/02/2021 09:37:44 04/01/2004/02/2021 HEMOG LOBIN A1C hemoglobin A1C 6.0 % 4.8-5. 6 above high normal Predi abete s: 5.7 - 6.4 Diabe arnold: >6.4 Glyce gerardo contr ol for adult s with diabe arnold: <7.0 Not Available [facility] ([facility]) [address] [facility], [place], [address], 04/02/2021 09:37:45 04/01/20 21 04/02/2021 TSH TSH 3.210 uIU/m L 0.450- 4.500 Not Available [facility] ([facility]) [address] [facility], [place], [address], 04/02/2021 09:37:45 04/01/20 21 04/02/2021 VITAM IN D, 25-HY DROXY vitamin D, 25-hydroxy 38.6 NG/mL 30.0-1 00.0 Vitam in D defic iency has been defin ed by the Insti tute of Medic ine and an Endoc rine Socie ty pract ice guide line as a level of serum 25-OH vitam in D less than 20 ng/mL (1,2) . The Endoc rine Socie ty went on to furth er defin e vitam in D insuf ficie ncy as a level betwe en 21 and 29 ng/mL (2). 1. IOM (Inst itute of Medic ine). 2010. Jimbo ry refer ence intak es for calci um and D. Tiffanie crocker [place]: The [facility] . 2. Chiara palmer MF, Ghassan echevarria [place], Cordelia off-F errar i CUNHA, et al. Evalu ation , treat ment, and preve ntion of vitam in D defic iency : an Endoc rine Socie ty clini aliza pract ice guide line. JCEM. 2010; 96(7) :1911 -30. Not Available [facility] ([facility]) [address] [facility], [place], [address], 04/02/2021 09:37:46 04/01/20 21 04/02/2021 T4,FR EE(DI RECT) T4,free(dire ct) 1.23 NG/dL 0.82-1 .77 Not Available [facility] ([facility]) [address] [facility], [place], [address], 04/02/2021 09:37:47 10/14/19 22 10/13/2021 HEMOG LOBIN A1C HGBA1C 6.1 % 4.0-6. 0 high Not Available [facility] (Main Location) [address] ,, [place], [address], 10/14/2021 13:39:24 10/14/19 22 10/13/2021 CMP (COMP REHEN SIVE METAB OLIC PANEL ) glucose 101 mg/dL 74-99 high Not Available [facility] (Main Location) [facility] [address] ,, [place], [address], 10/14/2021 13:39:25 10/14/19 22 10/13/2021 CMP (COMP REHEN SIVE METAB OLIC PANEL ) urea nitrogen, blood (BUN) 16 mg/dL 8-23 Not Available [facility] (Main Location) [address] [place], [place] [address] ,, [place], [address], 10/14/2021 13:39:25 10/14/19 22 10/13/2021 CMP (COMP REHEN SIVE METAB OLIC PANEL ) total bilirubin 0.8 mg/dL 0.0-1. 2 Not Available [facility] (Main Location) [address] [place], [place] [address] ,, [place], [address], 10/14/2021 13:39:25 10/14/19 22 10/13/2021 CMP (COMP REHEN SIVE METAB OLIC PANEL ) total protein 7.2 g/dL 6.6-8. 7 Not Available [facility] (Main Location) [address] [place], [place] [address] ,, [place], [address], 10/14/2021 13:39:25 10/14/19 22 10/13/2021 CMP (COMP REHEN SIVE METAB OLIC PANEL ) alanine aminotransfe rase (ALT) 14 U/L 0-41 Not Available [facility] (Main Location) [address] [place], [place] [address] ,, [place], [address], 10/14/2021 13:39:25 10/14/19 22 10/13/2021 CMP (COMP REHEN SIVE METAB OLIC PANEL ) alkaline phosphatase 88 U/L 40-130 Not Available [facility] (Main Location) [address] [place] [address] [address] ,, [place], [address], 10/14/2021 13:39:25 10/14/19 22 10/13/2021 CMP (COMP REHEN SIVE METAB OLIC PANEL ) aspartate aminotransfe rase (AST) 13 U/L 0-40 Not Available [facility] (Main Location) [facility] [address] ,, [place], [address], 10/14/2021 13:39:25 10/14/19 22 10/13/2021 CMP (COMP REHEN SIVE METAB OLIC PANEL ) calcium 10.0 mg/dL 8.6-10 .2 Not Available [facility] (Main Location) [facility] [address] ,, [place], [place], [address], 10/14/2021 13:39:25 10/14/19 22 10/13/2021 CMP (COMP REHEN SIVE METAB OLIC PANEL ) albumin 4.6 g/dL 3.5-5. 2 Not Available [facility] (Main Location) [facility] [address] ,, [place], [address], 10/14/2021 13:39:25 10/14/19 22 10/13/2021 CMP (COMP REHEN SIVE METAB OLIC PANEL ) CO2 24 mmol/ L 23-31 Not Available [facility] (Main Location) [facility] [address] ,, [place], [address], 10/14/2021 13:39:25 10/14/19 22 10/13/2021 CMP (COMP REHEN SIVE METAB OLIC PANEL ) creatinine, serum 1.0 mg/dL 0.7-1. 2 Not Available [facility] (Main Location) [facility] [address] ,, [place], [address], 10/14/2021 13:39:25 10/14/19 22 10/13/2021 CMP (COMP REHEN SIVE METAB OLIC PANEL ) sodium, serum 142 mmol/ L 136-14 5 Not Available [facility] (Main Location) [address] [place], [place] [address] ,, [place], [address], 10/14/2021 13:39:25 10/14/19 22 10/13/2021 CMP (COMP REHEN SIVE METAB OLIC PANEL ) potassium, serum 4.4 mmol/ L 3.5-5. 1 Not Available [facility] (Main Location) [address] ,, [place], [address], 10/14/2021 13:39:25 10/14/19 22 10/13/2021 CMP (COMP REHEN SIVE METAB OLIC PANEL ) chloride, serum 105 mmol/ L 98-107 Not Available [facility] (Main Location) [address] ,, [place], [address], 10/14/2021 13:39:25 10/14/19 22 10/13/2021 CMP (COMP REHEN SIVE METAB OLIC PANEL ) eGFR 85 >59 Persi stent reduc tion for 3 month s or more in an eGFR <60 mL/mi n/1.7 3 m2 defin es CKD. Patie nts with eGFR value s>/=6 0 mL/mi n/1.7 3 m2 may also have CKD if evide nce of persi stent protu niuri a is prese nt. Addit ional infor chrystal kennedy may be found at www.k doqi. org. Not Available [facility] (Main Location) [address] ,, [place], [address], 10/14/2021 13:39:25 04/13/19 23 04/14/2022 HEMOG LOBIN A1C hemoglobin A1C 6.0 % 4.8-5. 6 above high normal Predi abete s: 5.7 - 6.4 Diabe arnold: >6.4 Glyce gerardo contr ol for adult s with diabe arnold: <7.0 Not Available [facility] ([facility]) [address], [place], [address], 04/14/2022 16:12:34 04/13/19 23 04/14/2022 C-PEP TIDE, SERUM C-peptide, serum 8.7 NG/mL 1.1-4. 4 above high normal C-Pep tide refer ence inter silvia is for fasti ng patie nts. Not Available [facility] ([facility]) [address], [place], [address], 04/14/2022 16:12:35 10/14/19 22 11/10/2021 elect rocar diogr am No observ ation record ed. [address], [place], [address], 03/31/2022 09:45:51 10/14/19 22 10/13/2021 elect rocar diogr am No observ ation record ed. [address], [place], [address], 03/31/2022 09:45:51 Result Notes None recorded. Problems Name Problem SNOMED Code Status Onset Date Resolution Date Notes Provider Name and Address Organization Details Recorded Time Anxiety 15165028 Leanna wolfe [facility] 6 08:37:51 Benign prostatic hyperplas ia without outflow obstructi on [id number] Leanna wolfe [facility] 6 08:37:58 Diabetes mellitus 47737444 Active diet control Stephanie Abernathy MD [address], [place], [address] , [facility] 6 17:15:28 Diverticu lar disease of colon 912855420 Leanna wolfe [facility] 6 08:38:15 Esophagea l reflux finding 127265921 Leanna wolfe [facility] 6 08:38:26 Benign hypertens ion 17118914 Leanna wolfe [facility] 6 08:38:35 Hyperlipi demia 59062141 Leanna wolfe [facility] 6 08:38:43 Hypogonad ism 99502040 Leanna Lockett [facility] 6 08:39:00 Cluster headache 507800391 Active 2016 MD Renee Smith [address], [place], [address] , [facility] 7 17:21:41 Vitamin D deficienc y 09712970 Active 2017 MD Renee Smith [address], [place], [address] , [facility] 8 16:58:22 Body mass index 30+ - obesity 902486279 Active 2018 MD Renee Smith [address], [place], [address] , [facility] 9 09:41:03 Mixed hyperlipi demia 847975747 Active 2020 MD Renee Smith [address], [place], [address] , [facility] 1 09:22:07 History of SARS-CoV- 2 071119120588 237644 Active 2021 MD Renee Smith [address], [place], [address] , [facility] 2 09:36:45 Problem Notes None recorded. Procedures Surgical History Date Name Laterality Status Provider Name and Address Organization Details Recorded Time 03/31/20 Diabetic Foot Exam completed MD Renee Smith [address], [place], [address], [facility] 03/31/2022 09:43:13 01/18/20 Colonoscopy completed MD Renee Smith [address], [place], [address], [facility] 01/23/2022 15:50:41 10/14/19 Diabetic Foot Exam completed MD Renee Smith [address], [place], [address], [facility] 10/13/2021 10:30:45 09/30/19 21 Diabetic Foot Exam completed MD Renee Smith [address], [place], [address], [facility] 09/29/2020 09:25:30 03/31/20 20 Diabetic Foot Exam completed MD Renee Smith [address], [place], [address], [facility] 03/31/2020 09:20:13 01/03/20 20 Diabetic Foot Exam completed MD Renee Smith [address], [place], [address], [facility] 01/03/2020 12:47:46 03/30/20 18 Diabetic Foot Exam completed MD Renee Smith [facility] [address], [place], [address], [facility] 03/30/2018 15:41:29 12/29/19 18 Diabetic Foot Exam completed MD Renee Smith [facility] [address], [place], [address], [facility] 12/28/2017 17:07:47 09/10/19 17 Colonoscopy completed BOB KAPOOR [facility] 06/05/2020 10:28:03 12/15/19 13 Colonoscopy completed Cathryn Gregg [facility] 12/25/2015 08:36:50 Tonsillectomy completed Cathryn Gregg [facility] 12/25/2015 08:36:57 Imaging Results None recorded. Procedure Notes None recorded. Medical Equipment None Reported. Allergies No known drug allergies Medications Name Sig Start Date Stop Date Status Note LastModified by Organization Details LastModified Time binaxnow cov kit home arnold 03/31 completed Not Available Not Available Not Available atorvastat in 40 mg tablet TAKE 1 TABLET BY MOUTH ONCE DAILY AT BEDTIME 2022 active Not Available Not Available Not Avai lable metformin 500 mg tablet Take 1 tablet by mouth twice daily 2022 active Not Available Not Available Not Avai lable atorvastat in 20 mg tablet TAKE 1 TABLET BY MOUTH AT BEDTIME 01/04 completed Not Available Not Available Not Available sucralfate 1 gram tablet TAKE 1 TABLET BY MOUTH THREE TIMES A DAY FOR 1 MONTH DIRECTED . 09/29 completed Not Available Not Available Not Available Medrol (Mono) 4 mg tablets in a dose pack Take 1 dose pk by oral route as directed . 07/24 completed Not Available Not Available Not Available aspirin 81 mg tablet,del ayed release TAKE 1 TABLET BY MOUTH IN THE MORNING active Not Available Not Available No t Available tamsulosin 0.4 mg capsule Take 1 capsule by mouth once daily 2022 active Not Available Not Available Not Avai lable paroxetine 30 mg tablet TAKE 1 TABLET BY MOUTH ONCE DAILY AT BEDTIME active Not Available Not Available No t Available paroxetine 20 mg tablet 12/24 completed Not Available Not Available Not Available pantoprazo le 40 mg tablet,del ayed release TAKE 1 TABLET BY MOUTH ONCE DAILY 03/31 completed Not Available Not Available Not Available buspirone 10 mg tablet 12/27 completed Not Available Not Available Not Available omeprazole 20 mg capsule,de layed release TAKE 1 CAPSULE BY MOUTH ONCE DAILY IN THE MORNING 09/29 completed Not Available Not Available Not Available lisinopril 5 mg tablet Take 1 tablet by mouth once daily active Not Available Not Available No t Available Vitamin D2 1,250 mcg (50,000 unit) capsule TAKE 2 CAPSULES EVERY WEEK 03/30 completed Not Available Not Available Not Available metformin ER 500 mg tablet,ext ended release 24 hr Take 1 tablet twice a day by oral route. 03/31 completed Not Available Not Available Not Available lisinopril 2.5 mg tablet TAKE 1 TABLET DAILY 06/23 completed Not Available Not Available Not Available Pneumovax- 23 25 mcg/0.5 mL injection syringe 12/27 completed Not Available Not Available Not Available ezetimibe 10 mg tablet Take 1 tablet by mouth once daily active Not Available Not Available No t Available Metamucil 0.52 gram capsule Take 2 capsules every day by oral route. 03/31 completed -- not taking Not Available Not Available Not Available rosuvastat in 20 mg tablet TAKE 1 TABLET BY MOUTH ONCE DAILY 02/25 completed Not Available Not Available Not Available Simcor 500 mg-20 mg tablet,ext ended release 12/24 completed Not Available Not Available Not Available Vitamin D3 125 mcg (5,000 unit) tablet Take 1 tablet every day by oral route with meals. 2020 active Not Available Not Available Not Avai lable Fortesta 10 mg/0.5 gram/actua tion transderma l gel pump 07/13 completed Not Available Not Available Not Available BinaxNOW COVID-19 Ag Self Test kit Use as Directed on the Package 03/31 completed Not Available Not Available Not Available Paxlovid 300 mg (150 mg x 2)-100 mg tablets in a dose pack TAKE 3 TABLETS TOGETHER (TWO 150 MG NIRMATRE LVIR TABLETS AND ONE 100 MG RITONAVI R TABLET) BY MOUTH TWICE DAILY FOR 5 DAYS. 12/09 completed Not Available Not Available Not Available Vitals Date Recorded Body height Body mass index (BMI) Body weight Respiratory rate Body temperature Heart rate Systolic And Diastolic Provider Name and Address Organization Details Last Updated DateTime 1 182.88 cm 33.9 kg/m2 653634. 09 g 16 /min 97.8 [degF] 81 /min 130/81 mm[Hg] BOB KAPOOR [facility] 1 10:28:13 Date Recorded Systolic And Diastolic Provider Name and Address Organization Details Last Updated DateTime 09/29/2020 136/81 mm[Hg] Stephanie Abernathy MD [address] [facility] [address], [place], [address], [facility] 09/29/2020 09:19:01 Date Recorded Respiratory rate Body height Body mass index (BMI) Body weight Body temperature Heart rate Provider Name and Address Organization Details Last Updated DateTime 1 16 /min 152.4 cm 47.8 kg/m2 806888. 13 g 97.6 [degF] 78 /min Blank Anguiano [facility] 09:00:38 Date Recorded Body height Body mass index (BMI) Body weight Body temperature Respiratory rate Heart rate Systolic And Diastolic Provider Name and Address Organization Details Last Updated DateTime 2 152.4 cm 48.2 kg/m2 619211. 32 g 97.8 [degF] 16 /min 83 /min 123/77 mm[Hg] Veronica Aguero [facility] 2 09:45:20 Date Recorded Body height Heart rate Respiratory rate Body mass index (BMI) Body weight Body temperature Systolic And Diastolic Provider Name and Address Organization Details Last Updated DateTime 1 152.4 cm 109 /min 16 /min 48.7 kg/m2 310010. 3 g 98.2 [degF] 130/78 mm[Hg] Leila Guerra [facility] 1 15:28:26 Date Recorded Body height Heart rate Respiratory rate Body temperature Body mass index (BMI) Body weight Systolic And Diastolic Provider Name and Address Organization Details Last Updated DateTime 2 152.4 cm 81 /min 16 /min 97.5 [degF] 48.4 kg/m2 949173. 91 g 123/75 mm[Hg] Veronica Aguero [facility] 2 09:23:53 Social History Question Answer Notes LastModified by [email or web address] ion Details LastModified Time Tobacco Smoking Status Never Smoker Not Available [facility] 01/18/2020 03:12:12 Do You Have An Advance Directive? No [id number] Information n ot available 01/18/2020 What Is Your Level Of Caffeine Consumption? 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 No Information n ot available 06/05/2020 In The 14 Days Before Symptom Onset, Have You Had Close Contact With A Person Who Is Under Investigation For COVID-19 While That Person Was Ill? No Information not available 06/05/2020 Have You Been To An Area Known To Be High Risk For COVID-19? No Information not available 06/05/2020 Have You Directly Handled Bats, Rodents, Or Primates From Ebola Endemic Areas? No Information not available 09/29/2020 Have You Processed Blood Or Body Fluids From An Ebola Virus Disease Patient Without Appropriate PPE? No Information not available 09/29/2020 Have You Had Household Contact With An Ebola Virus Disease Patient? No Information not available 09/29/2020 Have You Had Direct Contact With A Body In An Ebola-affected Area Without Appropriate PPE? No Information not available 09/29/2020 Have You Had Percutaneous (e.g. Needle Stick) Or Mucous Membrane Exposure To Blood Or Body Fluids From An Ebola Virus Disease Patient? No Information not available 09/29/2020 Have You Had Other Close Contact With An Ebola Virus Disease Patient In Health Care Facilities Or Community Settings? No Information not available 09/29/2020 Do You Reside In Or Have You Traveled To An Area Where Ebola Virus Transmission Is Active? No Information not available 09/29/2020 Are There Any Guns Present In Your Home? No Information not available 09/29/2020 High Number Of Sexual Partners No Information not available 09/29/2020 History Of Inconsistent/no Condom Use No Information not available 09/29/2020 Live Alone Or With Others? With Others [email or web address] Information not available 12/25/2015 What Was The Date Of Your Most Recent Tobacco Screening? 03/31/2021 Information not available 03/31/2021 Mother With HIV? No Informat ion not available 09/29/2020 Performs Monthly Self-breast Exam? No Information no t available 09/29/2020 Seat Belts Used Routinely Yes Information not available 09/29/2020 Sexual Partner Has HIV? No Information not available 09/29/2020 Sexual Partner Uses IV Drugs? No Information not available 09/29/2020 Smoke Alarm In Home Yes Information not available 09/29/2020 Do You Use Sunscreen Routinely? No Information not available 09/29/2020 Have You Used IV Drugs? No Information not available 09/29/2020 Sex: Unknown Functional Status Question Answer Note LastModified by Organization D etails LastModified Time What is your level of alcohol consumption? None [id number] Information not available 01/18/2020 Are you able to care for yourself independently? Yes Information not available 09/29/2020 Mental Status None recorded. Family History Relationship Description Onset Age of this Age Resolved Age Notes LastModified by Organization Details LastModified Time Father Essential hypertension [email or web address] Not available 08:37:33 Father Malignant neoplasm of pancreas 82 [email or web address] Not available 2017 16:57:42 Mother Essential hypertension [email or web address] Not available 08:37:33 Medical History Condition Response Coronary Artery Disease N Other N Gout N Kidney Stones N Blood Diseases N Hyperthyroidism N Breast Cancer N Blood Transfusion N COPD N Depression N Lung Disease N Hypothyroidism N Defects or Inherited Disease N Developmental or Behavioral Disorders N Breast Problem N Difficulty Swallowing N Anesthesia Complications N Meniere's disease N Anxiety Disorder N Muscle, Joint, or Bone Problems N Obesity N Vision or Eye Problems N Arthritis N Polyps N Infertility N Mental Disorder N Cancer N Varicosities N Stroke N Endometriosis N Bladder or Kidney Problems N High Cholesterol N Liver Disease N Fibromyalgia N Headaches N Kidney Disease N Allergies/Hayfever N Heart Problems N Ear or Hearing Problems N Hospitalizations N Thyroid Problems N GI Problems N ADD/ADHD N Skin Problems N Eating Disorder N Anemia N MRSA exposure N Constipation N Mental Illness N Ovarian Cancer N Diabetes N Bedwetting N Seizures/Epilepsy N Tuberculosis N AIDS/HIV N Congestive Heart Failure (CHF) N Eczema N Diverticulitis N Abuse/Domestic Violence N Asthma N Reflux/GERD N Hepatitis N Heart Disease N Pulmonary Embolism N Pre-Eclampsia N Hypertension N Chronic Ear Infections N Osteoporosis N Chicken Pox N Autism Spectrum Disorder (ASD) N Thrombophilias N Immunizations Vaccine Type Date Status Note Provider Name and Address Organization Details Recorded Time SARS-COV-2 (COVID-19) vaccine, UNSPECIFIED 021 completed Blank wolfe [facility] 09/29/2020 09:00:25 COVID-19, mRNA, LNP-S, PF, 30 mcg/0.3 mL dose 021 completed Leila Guerra [facility] 03/31/2021 15:29:50 SARS-COV-2 (COVID-19) vaccine, UNSPECIFIED 022 completed Stephanie Abernathy MD [address], [place], [address], [facility] 03/31/2022 09:33:29 zoster recombinant 019 cancelled patient objection Not Available [facility] 04/21/2019 02:28:14 Influenza, MDCK, quadrivalent, PF 019 cancelled patient objection Not Available [facility] 04/21/2019 02:28:16 Influenza, split virus, quadrivalent, PF 020 cancelled patient objection Stephanie Abernathy MD [address], [place], [address], [facility] 01/03/2020 12:49:40 pneumococcal polysaccharide PPV23 017 completed MD Renee Smith [address], [place], [address], [facility] 12/27/2016 17:21:59 Past Encounters Encounter ID Performer Location Encounter Start Date Encounter Closed Date Diagnosis/Indication Diagnosis SNOMED-CT Code Diagnosis ICD10 Code Diagnosis IMO Codes Diagnosis Note [id number] Stephanie Abernathy MD [facility] [employer] [facility], [facility] [address] [place] [address] 12/25/2015 16:29:24 12/25/2015 17:23:38 Adult health examination 067642693 Z00.00 Hyperlipidemia 56864026 E78.5 Mixed anxi ety and depressive disorder 621444700 F41.8 Benign pro static hyperplasia without outflow obstruction 978490967 N40.0 Constipation 78917032 K5 9.00 Vitamin D deficiency 347 40314 E55.9 Viral screening 69498154 4 Z11.59 Diabetes mellitus 912887 09 E11.9 Active or passive immunization 357318663 Z23 [id number] Stephanie Abernathy MD [facility] [employer] [facility], [facility] [address] [place] [address] 06/23/2016 16:32:41 06/23/2016 17:32:00 Benign prostatic hyperplasia without outflow obstruction 640004714 N40.0 Vitamin D deficiency 347 20229 E55.9 Esophageal reflux finding 540437235 K21.9 Anxiety 21801030 F41.9 Hyperlipidemia 67027718 E78.5 Diabetes mellitus 931564 09 E11.9 Active or passive immunization 687367632 Z23 Screening for malignant neoplasm of colon 470751569 Z12.11 Benign hypertension 1072 5009 I10 [id number] Stephanie Abernathy MD [facility], [place] [address] [place] [address] 12/27/2016 16:34:34 12/27/2016 17:34:57 Benign hypertension 14662692 I10 Hyperlipidemia 92695359 E78.5 Diabetes mellitus 804957 09 E11.9 last ophth eval 07/2016 Hypogonadism 64383580 E2 9.1 Screening for malignant neoplasm of colon 932506086 Z12.11 last C scope 09/09/16 Active or passive immunization 919462113 Z23 refuse flu Overweight 775865695 E66 .3 education Adult heal th examination 240564972 Z00.00 [id number] Stephanie Abernathy MD [employer] [facility], [place] [address] [address] [place] [address] 06/27/2017 16:07:45 06/27/2017 17:14:28 Benign hypertension 31538929 I10 Benign pro static hyperplasia without outflow obstruction 271337136 N40.0 Hyperlipidemia 56287725 E78.5 Diabetes mellitus 257097 09 E11.9 last ophth eval 07/2016 Screening for malignant neoplasm of colon 085814853 Z12.11 last C scope 09/09/16 Active or passive immunization 476485154 Z23 refuse flu Hypogonadism 72117906 E2 9.1 Vitamin D deficiency 347 93046 E55.9 Shoulder joint pain 2679 13958 M25.519 [id number] Stephanie Abernathy MD [facility], [place] [address] [place] [address] 12/28/2017 15:39:18 12/28/2017 17:13:56 Benign hypertension 54522928 I10 Vitamin D deficiency 347 97329 E55.9 Hypogonadism 00391388 E2 9.1 does not wants any treatment for now Diabetes mellitus 697750 09 E11.9 last ophth eval 07/2016 Screening for malignant neoplasm of colon 355362415 Z12.11 last C scope 09/09/16 Hyperlipidemia 88303518 E78.5 Active or passive immunization 094585759 Z23 refuse flu [id number] Stephanie Abernathy MD [employer], [place] [address] [place] [address] 03/30/2018 15:13:08 03/30/2018 15:50:52 Benign hypertension 77159176 I10 Diabetes mellitus 861053 09 E11.9 last ophth eval 07/2016 Hyperlipidemia 23127604 E78.5 Vitamin D deficiency 347 03801 E55.9 Benign pro static hyperplasia without outflow obstruction 748404559 N40.0 Screening for malignant neoplasm of colon 083591906 Z12.11 last C scope 09/09/16 , good till 2021 Active or passive immunization 000004233 Z23 refuse flu OR shingrix Weak arterial pulse 3152 41048 R09.89 B/L feet Adult heal th examination 603352640 Z00.01 [id number] Stephanie Abernathy MD [employer], [place] [address] [place] [address] 03/30/2019 09:06:11 03/30/2019 09:42:12 Adult health examination 826029480 Z00.01 Benign hypertension 1072 5009 I10 Benign pro static hyperplasia without outflow obstruction 601550307 N40.0 Cluster headache 4935389 09 G44.009 no recurrence Diabetes mellitus 188521 09 E11.9 last ophth eval 07/2018 Diverticul ar disease of colon 666256513 K57.30 asymptomat ic Hyperlipidemia 96292213 E78.5 Vitamin D deficiency 347 87781 E55.9 Screening for malignant neoplasm of colon 322548873 Z12.11 last C scope 09/09/16 , good till 2021 Active or passive immunization 746843426 Z23 refuse flu OR shingrix Weak arterial pulse 3152 49593 R09.89 B/L feet Body mass index 30+ - obesity 224512184 Z68.35 education [id number] Stephanie Abernathy MD [employer], [place] [address] [place] [address] 01/03/2020 12:22:00 01/03/2020 12:52:27 Abdominal pain 97242761 R10.9 Benign hypertension 1072 5009 I10 good control Diabetes mellitus 060954 09 E11.9 last ophth eval 08/2019 Body mass index 30+ - obesity 186536690 Z68.35 education Benign pro static hyperplasia without outflow obstruction 716295022 N40.0 last PSA 04/05/19 Hyperlipidemia 53001002 E78.5 Vitamin D deficiency 347 36145 E55.9 Weak arterial pulse 3152 27895 R09.89 B/L feet Screening for malignant neoplasm of colon 248419709 Z12.11 last C scope 09/09/16 , good till 2021 Active or passive immunization 748530062 Z23 refuse flu OR shingrix [id number] Stephanie Abernathy MD [employer], [facility] [address] [place] [address] 03/31/2020 08:47:09 03/31/2020 09:34:59 Adult health examination 547420198 Z00.01 Benign hypertension 1072 5009 I10 good control Benign pro static hyperplasia without outflow obstruction 661363240 N40.0 asymptomat iclast PSA 04/05/19 Body mass index 30+ - obesity 183989845 Z68.35 education Cluster headache 3776566 09 G44.009 no recurrence Diabetes mellitus 761374 09 E11.9 last ophth eval 08/2019 Diverticul ar disease of colon 490821515 K57.30 asymptomat ic Esophageal reflux finding 535950285 K21.9 on omeprazole 20 QAM Hyperlipidemia 38020674 E78.5 Vitamin D deficiency 347 89374 E55.9 Hypogonadism 15046831 E2 9.1 does not wants any treatment for now Anxiety 70782280 F41.9 stable ,No SI , No HI Screening for malignant neoplasm of colon 564533989 Z12.11 last C scope 09/09/16 , good till 2021 Active or passive immunization 995693251 Z23 refuse flu OR shingrix [id number] tSephanie Abernathy MD [employer], [facility] [address] [place] [address] 06/05/2020 09:53:44 06/05/2020 10:46:52 Closed injury of head 0006790607 06 S09.90XA educationn o red flags Neck pain 56079421 M54.2 Hiatal her jac with gastroesophageal reflux 881790314 K21.9 on PPI Testostero ne level below reference range 691252966 R79.89 Screening for malignant neoplasm of colon 896917254 Z12.11 last C scope 09/09/16 , good till 2021 Active or passive immunization 524044331 Z23 refuse flu OR shingrix [id number] Stephanie Abernathy MD [employer], [facility] [address] [place] [address] 09/29/2020 08:41:37 09/29/2020 09:29:56 Benign hypertension 01641578 I10 good controlper pt had optometry 1last EKG 03/31/20 Mixed hyperlipidemia 267 372233 E78.2 Vitamin D deficiency 347 20010 E55.9 Anxiety 05711054 F41.9 stable ,No SI , No HI Benign pro static hyperplasia without outflow obstruction 571534021 N40.0 asymptomat iclast PSA 04/05/19 Body mass index 30+ - obesity 899855701 Z68.35 educationl ost 5 LBs on diet and exercise Diabetes mellitus 570719 09 E11.9 last ophth eval 08/2020 Esophageal reflux finding 200798550 K21.9 last EGD 05/2020 Screening for malignant neoplasm of colon 192688613 Z12.11 last C scope 09/09/16 , good till 2021 Active or passive immunization 385578993 Z23 refuse flu OR shingrix [id number] Tushar Shetty MD [employer], [facility] [address] [place] [address] 03/31/2021 14:01:24 03/31/2021 16:02:02 Adult health examination 295170088 Z00.00 Benign hypertension 1072 5009 I10 good controlper pt had optometry 1last EKG 03/31/20 Mixed hyperlipidemia 267 566889 E78.2 Vitamin D deficiency 347 79917 E55.9 Anxiety 02650602 F41.9 stable ,No SI , No HI Benign pro static hyperplasia without outflow obstruction 888987497 N40.0 asymptomat iclast PSA 04/05/19 Diabetes mellitus 763469 09 E11.9 last ophth eval 08/2020 Esophageal reflux finding 256333519 K21.9 last EGD 05/2020 Screening for malignant neoplasm of colon 822334073 Z12.11 last C scope 09/09/16 , good till 2021 Active or passive immunization 941811080 Z23 refuse flu OR shingrix Body mass index 40+ - severely obese 567549578 Z68.42 -- pt gained 4.5 # since his last visit-- pt's BMI today is 48.7 (ideal is between 20-25) [id number] Stephanie Abernathy MD [facility] [address] [place] [address] 10/13/2021 09:33:15 10/13/2021 10:37:20 Benign hypertension 63402644 I10 good controlper pt had optometry 09/2021last EKG 03/31/20 Body mass index 30+ - obesity 111774319 Z68.35 educationd iet and exercise Diabetes mellitus 474215 09 E11.9 last ophth eval 09/2021 per pt Mixed hyperlipidemia 267 896995 E78.2 last LDL 04/01/21 Screening for malignant neoplasm of colon 619023498 Z12.11 last C scope 09/09/16 , good till 2021 Active or passive immunization 558334697 Z23 refuse flu OR shingrix [id number] Stephanie Abernathy MD [employer] [address] [place] [address] 03/31/2022 09:09:28 03/31/2022 09:52:36 Adult health examination 246883591 Z00.01 Benign hypertension 1072 5009 I10 good controlper pt had optometry 09/2021last EKG 10/13/21 Benign pro static hyperplasia without outflow obstruction 338360293 N40.0 asymptomat iclast PSA 04/05/19 Anxiety 96641282 F41.9 stable ,No SI , No HI Body mass index 30+ - obesity 444963519 Z68.35 educationd iet and exercise Cluster headache 6135806 09 G44.009 no recurrence Diabetes mellitus 315664 09 E11.9 last ophth eval 09/2021 per pt Diverticul ar disease of colon 131488715 K57.30 asymptomat ic Esophageal reflux finding 403529615 K21.9 last EGD 05/2020 Hyperlipidemia 12259402 E78.5 Hypogonadism 49297291 E2 9.1 does not wants any treatment for now Mixed hyperlipidemia 267 076579 E78.2 last LDL 04/01/21 Vitamin D deficiency 347 17390 E55.9 Screening for malignant neoplasm of colon 204973436 Z12.11 last C scope 01/20/22 , good till 2026 History of SARS-CoV-2 29 90082939 70365305 Z86.16 last tested +ve 10/20/21 Active or passive immunization 132911394 Z23 refuse flu OR shingrix Health Concerns Section Related Observation LastModified by Organization Detai ls LastModified Time None Recorded Concern Status LastModified by Organization Details LastModified Time None Recorded Advance Directives Directive N: Payers Insurance Date Sequence Insurance Name Policy Number Policy Jim Covered Member ID Jim Member ID Guarantor Name 10/13/2021 1 [facility] [id number] Rohini Nova [id number] Otilio Lesli Christianson 04/16/2022 1 [employer] [id number] Rohini Christianson [id number] Otilio Ballesteros Meghan 09/26/2024 1 [place] [id number] Otilio Lesli Christianson [id number] Otilio Christianson Notes Date Note Type Note Provider Name and Address Organization Details Recorded Time 06/05/2020 text/html Hypertension F/UReported by PatientHPIFor medications, patient reportstaking medications as directedandno side effects from medication. For lifestyle, patient reportsregular exercise,limiting/marc iding salt, andcompliant with low salt diet. For associated symptoms, patient reportsno dizziness,no lightheadedness,no chest pain,no shortness of breath,no palpitations,no edema,no calf pain with exertion, andno headache. fell off bed , hit night stand with head ,no red flagshad EGD with GI Stephanie Abernathy MD [address] [facility] [address], [place], [address], [facility] 06/05/2020 10:42:36 09/29/2020 text/html Hypertension F/UReported by PatientHPIFor medications, patient reportstaking medications as directedandno side effects from medication. For lifestyle, patient reportsregular exercise,limiting/marc iding salt, andcompliant with low salt diet. For associated symptoms, patient reportsno dizziness,no lightheadedness,no chest pain,no shortness of breath,no palpitations,no edema,no calf pain with exertion, andno headache. Stephanie Abernathy MD [address] [facility] [address], [place], [address], [facility] 09/29/2020 09:26:15 03/31/2021 text/html Pt comes in for HTN, HLD, Vit D, & BPH, and weight monitoring. Pt feels well and has no c/o. Patient denies any jaw or neck discomfort, left arm pain/left arm discomfort, chest discomfort/pain, diaphoresis, breathing symptoms/chest tightness, indigestion sx, n/v, any angina equivalent symptoms, etc. Tushar Shetty MD [address], [place], [address], [facility] 03/31/2021 16:03:00 10/13/2021 text/html Hypertension F/UReported by PatientHPIFor medications, patient reportstaking medications as directedandno side effects from medication. For lifestyle, patient reportsregular exercise,limiting/marc iding salt, andcompliant with low salt diet. For associated symptoms, patient reportsno dizziness,no lightheadedness,no chest pain,no shortness of breath,no palpitations,no edema,no calf pain with exertion, andno headache. Stephanie Abernathy MD [address] [facility] [address], [place], [address], [facility] 10/13/2021 10:35:17 03/31/2022 text/html Medicare Annual Wellness VisitReported by PatientSocial/Behavio ral HistoryFor diet and nutrition, patient reportshealthy diet. For fracture risk, patient reportsno history of fractures,no recent explained fracture,no sudden unexplained fractures, andno previous musculoskeletal injuries. For physical activity, patient reportsexercises on a regular basis,recent increase in physical activity,good physical condition, anddiscussed exercise habits.Mental Status:For depression risk, patient reportsnever feels sad, empty, or tearful,no loss of interest in activities,no significant changes in weight,no sleep disturbances or insomnia,no agitation,no loss of energy,no feelings of worthlessness or guilt,no thoughts of suicide,no history of depression, andno history of mood disorders. For orientation, patient reportsno disorientation to time,no disorientation to date, andno disorientation to place. For concentration and memory, patient reportsno decreased concentrating ability,no memory lapses or loss, anddoes not forget words. For speech/motor difficulties, patient reportsno speech difficulties,no difficulty expressing formulated concepts,no difficulty with fine manipulative tasks,no difficulty writing/copying,no slowed reaction time, anddoes not knock things over when trying to pick them up.Functional AbilityFor hearing, patient reportsno loss of hearing. For vision, patient reportsno vision problems. For activities of daily living, patient reportsable to bathe with limited or no assistance,able to contol urination and bowels,able to dress with limited or no assistance,able to feed self with limited or no assistance,able to get out of chair or bed with limited or no assistance,able to groom with limited or no assistance, andable to toilet with limited or no assistance. For instrumental activities of daily living, patient reportsable to do house work with limited or no assistance,able to grocery shop with limited or no assistance,able to manage medications with limited or no assistance,able to manage money with limited or no assistance,able to prepare meals with limited or no assistance, andable to use the phone with limited or no assistance. For falls risk assessment, patient reportsno frequent falls while walking,no fall in the past year,no fall since last visit, andno dizziness/vertigo. For home safety, patient reportsuse of seatbeltsandno vision or hearing loss while driving. Hypertension F/UReported by PatientHPIFor medications, patient reportstaking medications as directedandno side effects from medication. For lifestyle, patient reportsregular exercise,limiting/marc iding salt, andcompliant with low salt diet. For associated symptoms, patient reportsno dizziness,no lightheadedness,no chest pain,no shortness of breath,no palpitations,no edema,no calf pain with exertion, andno headache. Stephanie Abernathy MD [address], [place], [address], [facility] 03/31/2022 09:49:09
--- OUTSIDE RECORDS SUMMARY | 2025-01-19 01:43 | XMS_ITS | Clinical Summary ---
Author Organization [facility] Address [address] [place] [address] Phone Care Team Providers Care Feather Washer Name Role Phone Jared Levin MD Primary Care Provider [phone] Allergies No known active allergies Medications cholecalcifer ol (VITAMIN D-3) 5,000 unit capsule Active psyllium husk (DAILY FIBER ORAL) Active predniSONE (DELTASONE) 20 mg tablet 3 tabs 2 days. 2 tabs 3 days 1 tab 3 days 15 tablet 09/06/19 25 Active Additional Information Patient not taking.Reported on 01/01/2025 lisinopriL (PRINIVIL,ZES TRIL) 5 mg tablet Take 1 tablet (5 mg total) by mouth daily 100 tablet 10/23/19 25 Active atorvastatin (LIPITOR) 40 mg tablet Take 1 tablet by mouth once daily 90 tablet 3 12/26/19 25 Active metFORMIN (GLUCOPHAGE) 500 mg tablet TAKE 1 TABLET BY MOUTH TWICE DAILY WITH MEALS 180 tablet 3 12/26/19 25 Active multivit-min- FW-erhxosf-fy tein 0.4 mg-300 mcg- 250 mcg tabletIndicat ions:Vitamin Deficiency Prevention 1 tablet Active tamsulosin (FLOMAX) 0.4 mg extended release capsule Take 1 capsule by mouth once daily 100 capsule 01/16/20 25 Active ezetimibe (ZETIA) 10 mg tablet Take 1 tablet (10 mg total) by mouth daily 90 tablet 01/19/20 25 Active PARoxetine (PAXIL) 30 mg tablet Take 1 tablet (30 mg total) by mouth daily 90 tablet 01/19/20 25 Active atorvastatin (LIPITOR) 40 mg tablet Take 1 tablet by mouth once daily 90 tablet 1 06/26/19 25 025 Discontinued metFORMIN (GLUCOPHAGE) 500 mg tablet TAKE 1 TABLET BY MOUTH TWICE DAILY WITH MEALS 180 tablet 1 06/26/19 25 025 Discontinued tamsulosin (FLOMAX) 0.4 mg extended release capsule Take 1 capsule by mouth once daily 100 capsule 10/09/19 025 Discontinued ezetimibe (ZETIA) 10 mg tablet Take 1 tablet by mouth once daily 90 tablet 10/16/19 025 Discontinued(Re order) PARoxetine (PAXIL) 30 mg tablet Take 1 tablet by mouth once daily 90 tablet 10/16/19 025 Discontinued(Re order) Active Problems Problem Noted Date Diagnosed Date Esophageal reflux 06/16/2022 Hypogonadism in male 06/16/2022 Anxiety 06/16/2022 Benign hypertension 06/16/2022 Benign prostatic hyperplasia without urinary obs truction 06/16/2022 Diabetes mellitus 06/16/2022 Diverticular disease of colon 06/16/2022 History of severe acute resp iratory syndrome coronavirus 2 (SARS-CoV-2) disease 03/31/2022 Mixed hyperlipidemia 09/29/2020 Obesity with body mass index 30 or greater 03/30 Vitamin D deficiency 06/27/2017 Cluster headache 06/23/2016 Encounters Date Type Department Care Team Description 01/15/2025 Results Follow-Up [facility] Family Medicine at [address] [place] [address] Adele Hogue PA Albumin Creatinine Ratio, Urine, CBC with auto differential, Comprehensive metabolic panel, Additional followed-up results: 2 01/02/2025 Results Follow-Up [facility] Family Medicine at [address] [place] [address] Jared Levin MD Albumin Creatinine Ratio, Urine, Specimen Status Report 01/01/2025 10:30 AM CDT Office Visit [facility] at [address] [place] [address] Jared Levin MD Medicare annual wellness visit, subsequent (Primary Dx); Type 2 diabetes mellitus without complication, without long-term current use of insulin (HCC); Benign hypertension; Mixed hyperlipidemia; Benign prostatic hyperplasia without urinary obstruction 01/01/2025 Orders Only [facility] Family Medicine at [address] [address] Jared Levin MD 12/21/2024 Results Follow-Up [facility] Medicine at [address] [address] Jared Levin MD CBC with auto differential, Comprehensive metabolic panel, Lipid panel, Additional followed-up results: 2 12/04/2024 Orders Only [facility] Medicine at [address] [phone] Jared Levin MD 10/19/2024 Telephone [facility] at [address] [place] [phone] Cathryn Nicole Unsuccessful Phone Call 1 ([facility] dm eye exam) from Last 3 Months Immunizations Immunization Administration Dates Next Due Influenza, Trivalent, High D ose, Split, Preservative Free, Intramuscular 12/16/2024 Influenza, Unspecified 01/03/2024(Deferr ed: Patient Refused),01/02/2023(Deferred: Patient Refused),01/31/2022(Deferred: Patient Refused) Pfizer SARS-CoV-2 Monovalent Vaccination (12+ Yrs) PURPLE 02/02/2022,02/28/2021,06/18/2020 Pneumococcal Conjugate Pcv20 06/16/2023 Pneumococcal Polysaccharide PPV23 07/03/2016 Surgical History Surgery Date Site/Laterality Comments TONSILLECTOMY Medical History Medical History Date Comments Diabetes mellitus Anxiety Hyperlipidemia Abnormal urination Hypertension Family History Medical History Relation Name Comments No Known Problems Father Stroke Mother No Known Problems Sister Relation Name Status Comments Father Mother Alive Sister Alive Social History Tobacco Use Types Packs/Day Years Used Date Smoking Tobacco: Never Smokeless Tobacco: Never Tobacco Cessation:Counseling Given: Not Answered AUDIT-C Answer Date Recorded Q1: How often [...] points, staff should administer the PHQ-9) 0 01/01/2025 Sex and Gender Information Value Date Recorded Sex Assigned at Not on file 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 Gender Identity Male 06/15/2022 5:35 PM CDT Sexual Orientation Not on file Obstetrics History Last Filed Vital Signs Vital Sign Reading Time Taken Comments Blood Pressure 126/76 01/01/2025 10:21 AM CDT Pulse 76 01/01/2025 10:21 AM CDT Temperature 36.6 C (97.8 F) 01/01/2025 10:21 AM CDT Respiratory Rate 18 09/05/2024 1:25 PM CDT Oxygen Saturation 99% 01/01/2025 10:21 AM CDT Inhaled Oxygen Concentration - - Weight 107 kg (236 lb) 01/01/2025 10:21 AM CDT Height 182.9 cm (6') 01/01/2025 10:21 AM CDT Body Mass Index 32.01 01/01/2025 10:21 AM CDT Plan of Treatment Health Maintenance Due Date Last Done Comments Hepatitis C Screening 1955 DTaP/Tdap/Td Vaccine (1 - Tdap) 1968 Hepatitis B Screening 06/27/1975 Zoster Vaccine (1 of 2) 06/27/2007 Dilated Eye Exam 06/06/2024 06/07/2023 Covid-19 Vaccine (7 - 2024-2 6 season) 2024 02/05/2023, 02/02/2022, 01/09/2022, Additional history exists Hemoglobin A1C 06/19/2025 12/20/2024, 06/02, 12/17/2023, Additional history exists Depression Screening 01/01/2026 01/01/2025, 06/20/2024, 12/20/2023, Additional history exists Fall Risk Assessment 01/01/2026 01/01/2025, 12/20/2023, 12/16/2022 Foot Exam 01/01/2026 01/01/2025, 12/03, 12/16/2022 Well Visit 65+ 01/01/2026 01/01/2025, 12/03, 12/16/2022 Albumin Creatinine Ratio, Urine 01/11/2026 01/11/2025, 01/01/2025, 06/08/2023 Lipid Panel 01/11/2026 01/11/2025, 12/03, 06/12/2024, Additional history exists eGFR 01/11/2026 01/11/2025, 12/03, 06/12/2024, Additional history exists Prostate Cancer Screening-PSA 01/11/2027, 12/20/2024, 06/08/2023 Colon Cancer Screening-DNA Stool 11/21/2027 11/21/19 25 Pneumococcal vaccine 65+ Completed 06/16/2023, 04/0 04/2016 Influenza Vaccine Completed 12/16/2024 Procedures Procedure Name Priority Date/Time Associated Diagnosis Comments ALBUMIN CREATININE RATIO, URINE Routine 01/11/2025 7:07 AM CDT Type 2 diabetes mellitus without complication, without long-term current use of insulin (HCC) PSA SCREEN Routine 01/11/2025 7:06 AM CDT Benign prostatic hyperplasia without urinary obstruction LIPID PANEL Routine 01/11/2025 7:06 AM CDT Benign hypertension Mixed hyperlipidemia COMPREHENSIVE METABOLIC PANEL Routine 01/11/2025 7:06 AM CDT Type 2 diabetes mellitus without complication, without long-term current use of insulin (HCC) Benign hypertension CBC WITH AUTO DIFFERENTIAL Routine 01/11/2025 7:06 AM CDT Benign hypertension SPECIMEN STATUS REPORT Routine 01/01/2025 12:00 AM CDT ALBUMIN CREATININE RATIO, URINE Routine 01/01/2025 12:00 AM CDT PSA SCREEN Routine 12/20/2024 8:22 AM CDT Screening for prostate cancer HEMOGLOBIN A1C Routine 12/20/2024 8:22 AM CDT Type 2 diabetes mellitus without complication, without long-term current use of insulin (HCC) LIPID PANEL Routine 12/20/2024 8:22 AM CDT Benign hypertension COMPREHENSIVE METABOLIC PANEL Routine 12/20/2024 8:22 AM CDT Benign hypertension Type 2 diabetes mellitus without complication, without long-term current use of insulin (HCC) CBC WITH AUTO DIFFERENTIAL Routine 12/20/2024 8:22 AM CDT Benign hypertension STOOL DNA COLOGUARD Routine 11/20/2024 HM DIABETES EYE EXAM Routine 06/07/2023 from Last 3 Months or Most Recently Relevant to Health Maintenance Results * Albumin Creatinine Ratio, Urine (01/11/2025 7:07 AM CDT) Creatinine ur 129.8 Not Estab. mg/dL [facility] - 01 Microalbumin, ur <3.0 Not Estab. ug/mL [facility] - 01 Microalbumin/cre at ratio <2 0 - 29 mg/g creat [facility] - 01 Comment: Normal: 0 - 29 Moderately increased: 30 - 300 Severely increased: >300 Urine 01/11/2025 7:07 AM CDT 01/11/2025 Narrative [facility] - 01/12/2025 12:10 PM CDT Performed at: 01 - [facility] [id number] Molder Labels: Greg Garnett PhD, Phone: [phone] us Jared Levin MD LAB URINE ORDERABLES Final Re sult [facility] - 01 * (ABNORMAL) PSA screen (01/11/2025 7:06 AM CDT) Pathologist [facility] PSA 5.4(H) 0.0 - 4.0 ng/mL [facility] - 01 Comment: Sofie ECLIA methodology. According to the [place], Serum PSA should decrease and remain at undetectable levels after radical prostatectomy. The AUA defines biochemical recurrence as an initial PSA value 0.2 ng/mL or greater followed by a subsequent confirmatory PSA value 0.2 ng/mL or greater. Values obtained with different assay methods or kits cannot be used interchangeably. Results cannot be interpreted as absolute evidence of the presence or absence of malignant disease. Blood 01/11/2025 7:06 AM CDT 01/11/2025 Narrative [facility] - 01/12/2025 8:11 AM CDT Performed at: [address] [place] [id number] Molder Labels: Greg Garnett PhD, Phone: [phone] us Jared Levin MD LAB BLOOD ORDERABLES Final Re sult [facility] - 01 * CBC with auto differential (01/11/2025 7:06 AM CDT) [facility] WBC 5.9 3.4 - 10.8 x10E3/uL [facility] - 01 RBC 5.43 4.14 - 5.80 x10E6/uL [facility] - 01 Hgb 16.2 13.0 - 17.7 g/dL [facility] - 01 Hct 50.9 37.5 - 51.0 % [facility] - 01 MCV 94 79 - 97 fL [facility] - 01 MCH 29.8 26.6 - 33.0 pg [facility] - 01 MCHC 31.8 31.5 - 35.7 g/dL [facility] - 01 Rdw 11.8 11.6 - 15.4 % [facility] - 01 Platelets 211 150 - 450 x10E3/uL [facility] - 01 Neutrophils pct 50 Not Estab. % [facility] - 01 Lymphs pct 38 Not Estab. % [facility] - 01 Monocytes pct 8 Not Estab. % [facility] - 01 Eosinophils pct 3 Not Estab. % [facility] - 01 Basophil pct 1 Not Estab. % [facility] - 01 Neutrophil abs 3.0 1.4 - 7.0 x10E3/uL [facility] - 01 Lymphs (Absolute) 2.2 0.7 - 3.1 x10E3/uL [facility] - 01 Monocyte abs 0.5 0.1 - 0.9 x10E3/uL [facility] - 01 Eosinophils, abs 0.2 0.0 - 0.4 x10E3/uL [facility] - 01 Basophils, abs 0.0 0.0 - 0.2 x10E3/uL [facility] - 01 Immature Granulocytes 0 Not Estab. % [facility] - 01 Immature Grans (Abs) 0.0 0.0 - 0.1 x10E3/uL [facility] - 01 Blood 01/11/2025 7:06 AM CDT 01/11/2025 Narrative [facility] - 01/12/2025 6:09 AM CDT Performed at: [address] [place] [id number] M[employer] Labels: Greg Garnett PhD, Phone: [phone] us Jared Levin MD LAB BLOOD ORDERABLES Final Re sult [facility] - 01 * Lipid panel (01/11/2025 7:06 AM CDT) [facility] Cholesterol 133 100 - 199 mg/dL [facility] - 01 Triglycerides 84 0 - 149 mg/dL [facility] - 01 HDL Cholesterol 59 >39 mg/dL [facility] - 01 VLDL 16 5 - 40 mg/dL [facility] - 01 LDL, calculated 58 0 - 99 mg/dL [facility] - 01 Blood 01/11/2025 7:06 AM CDT 01/11/2025 Narrative [facility] - 01/12/2025 8:11 AM CDT Performed at: [address] [place] [id number] Molder Labels: Greg Garnett PhD, Phone: [phone] us Jared Levin MD LAB BLOOD ORDERABLES Final Re sult [facility] - * (ABNORMAL) Comprehensive metabolic panel (01/11/2025 7:06 AM CDT) [facility] Glucose 100(H) 70 - 99 mg/dL [facility] - 01 BUN 16 8 - 27 mg/dL [facility] - 01 Creatinine, Serum 1.00 0.76 - 1.27 mg/dL [facility] - 01 eGFR 82 >59 mL/min/1.7 3 [facility] - 01 BUN/creat ratio 16 10 - 24 [facility] - 01 Sodium 140 134 - 144 mmol/L [facility] - 01 Potassium, sr 5.0 3.5 - 5.2 mmol/L [facility] - 01 Chloride 103 96 - 106 mmol/L [facility] - 01 CO2 24 20 - 29 mmol/L [facility] - 01 Calcium 9.9 8.6 - 10.2 mg/dL [facility] - 01 Protein, sr 7.1 6.0 - 8.5 g/dL [facility] - 01 Albumin 4.6 3.9 - 4.9 g/dL [facility] - 01 Globulin, Total 2.5 1.5 - 4.5 g/dL [facility] - 01 Bilirubin, Total 0.8 0.0 - 1.2 mg/dL [facility] - 01 Alk phos 69 47 - 123 IU/L [facility] - 01 AST 19 0 - 40 IU/L [facility] - 01 ALT 16 0 - 44 IU/L [facility] - 01 Blood 01/11/2025 7:06 AM CDT 01/11/2025 Narrative [facility] - 01/12/2025 7:09 AM CDT Performed at: [address] [id number] Molder Labels: Greg Garnett PhD, Phone: [phone] us Jared Levin MD LAB BLOOD ORDERABLES Final Re sult [facility] - * Specimen Status Report (01/01/2025 12:00 AM CDT) Specimen Status Report Comment [facility] - 01 Comment: Please note Please note The date and/or time of collection was not indicated on the requisition as required by state and federal law. The date of receipt of the specimen was used as the collection date if not supplied. 01/01/2025 01/01/2025 Narrative [facility] - 01/02/2025 6:09 PM CDT Performed at: [address] [id number] Molder Labels: Greg Garnett PhD, Phone: [phone] us Jared Levin MD LAB BLOOD ORDERABLES Final Re sult Performing Organization Address [facility] de Phone Number [facility] - 01 * Albumin Creatinine Ratio, Urine (01/01/2025 12:00 AM CDT) Pathologist [facility] Creatinine ur 133.6 Not Estab. mg/dL [facility] - 01 Microalbumin, ur 3.3 Not Estab. ug/mL [facility] - 01 Microalbumin/cre at ratio 2 0 - 29 mg/g creat [facility] - 01 Comment: Normal: 0 - 29 Moderately increased: 30 - 300 Severely increased: >300 01/01/2025 01/01/2025 Narrative [facility] - 01/02/2025 6:09 PM CDT Performed at: [address] [id number] Molder Labels: Greg Garnett PhD, Phone: [phone] us Jared Levin MD LAB URINE ORDERABLES Final Re sult Performing Organization Address [facility] Co de Phone Number [facility] - 01 * (ABNORMAL) PSA screen (12/20/2024 8:22 AM CDT) PSA 4.4(H) 0.0 - 4.0 ng/mL [facility] - 01 Comment: Sofie ECLIA methodology. According to the [employer], Serum PSA should decrease and remain at undetectable levels after radical prostatectomy. The AUA defines biochemical recurrence as an initial PSA value 0.2 ng/mL or greater followed by a subsequent confirmatory PSA value 0.2 ng/mL or greater. Values obtained with different assay methods or kits cannot be used interchangeably. Results cannot be interpreted as absolute evidence of the presence or absence of malignant disease. Blood 12/20/2024 8:22 AM CDT 12/20/2024 Narrative [facility] - 12/21/2024 8:12 AM CDT Performed at: [address] [place] [id number] Molder Labels: Greg Garnett PhD, Phone: [phone] us Jared Levin MD LAB BLOOD ORDERABLES Final Re sult [facility] * CBC with auto differential (12/20/2024 8:22 AM CDT) Pathologist [facility] WBC 5.1 3.4 - 10.8 x10E3/uL [facility] - 01 RBC 5.20 4.14 - 5.80 x10E6/uL [facility] - 01 Hgb 16.1 13.0 - 17.7 g/dL [facility] - 01 Hct 47.3 37.5 - 51.0 % [facility] - 01 MCV 91 79 - 97 fL [facility] - 01 MCH 31.0 26.6 - 33.0 pg [facility] - 01 MCHC 34.0 31.5 - 35.7 g/dL [facility] - 01 Rdw 11.8 11.6 - 15.4 % [facility] - 01 Platelets 179 150 - 450 x10E3/uL [facility] - 01 Neutrophils pct 59 Not Estab. % [facility] - 01 Lymphs pct 27 Not Estab. % [facility] - 01 Monocytes pct 9 Not Estab. % [facility] - 01 Eosinophils pct 4 Not Estab. % [facility] - 01 Basophil pct 1 Not Estab. % [facility] - 01 Neutrophil abs 3.1 1.4 - 7.0 x10E3/uL [facility] - 01 Lymphs (Absolute) 1.4 0.7 - 3.1 x10E3/uL [facility] - 01 Monocyte abs 0.5 0.1 - 0.9 x10E3/uL [facility] - 01 Eosinophils, abs 0.2 0.0 - 0.4 x10E3/uL [facility] - 01 Basophils, abs 0.0 0.0 - 0.2 x10E3/uL [facility] - 01 Immature Granulocytes 0 Not Estab. % [facility] - 01 Immature Grans (Abs) 0.0 0.0 - 0.1 x10E3/uL [facility] - 01 Blood 12/20/2024 8:22 AM CDT 12/20/2024 Narrative [facility] - 12/21/2024 5:08 AM CDT Performed at: [address] [place] [id number] M[employer] Labels: Greg Garnett PhD, Phone: [phone] us Jared Levin MD LAB BLOOD ORDERABLES Final Re sult Performing Organization Address [facility] de Phone Number [facility] * (ABNORMAL) Hemoglobin A1c (12/20/2024 8:22 AM CDT) [facility] Hgb A1C 5.7(H) 4.8 - 5.6 % [facility] - Comment: Prediabetes: 5.7 - 6.4 Diabetes: >6.4 Glycemic control for adults with diabetes: <7.0 Blood 12/20/2024 8:22 AM CDT 12/20/2024 Narrative [facility] - 12/21/2024 6:09 AM CDT Performed at: [address] [place] [id number] Molder Labels: Greg Garnett PhD, Phone: [phone] Jared Levin MD LAB BLOOD ORDERABLES Final Re sult Performing Organization Address [facility] de Phone Number [facility] - * Lipid panel (12/20/2024 8:22 AM CDT) Pathologist [facility] Cholesterol 136 100 - 199 mg/dL [facility] - 01 Triglycerides 92 0 - 149 mg/dL [facility] - 01 HDL Cholesterol 52 >39 mg/dL [facility] - 01 VLDL 17 5 - 40 mg/dL [facility] - 01 LDL, calculated 67 0 - 99 mg/dL [facility] - 01 Blood 12/20/2024 8:22 AM CDT 12/20/2024 Narrative [facility] - 12/21/2024 8:12 AM CDT Performed at: - [address] [id number] Molder Labels: Greg Garnett PhD, Phone: [phone] us Jared Levin MD LAB BLOOD ORDERABLES Final Re sult [facility] - 01 * Comprehensive metabolic panel (12/20/2024 8:22 AM CDT) Pathologist [facility] Glucose 97 70 - 99 mg/dL [facility] - 01 BUN 17 8 - 27 mg/dL [facility] - 01 Creatinine, Serum 0.93 0.76 - 1.27 mg/dL [facility] - 01 eGFR 90 >59 mL/min/1.73 [facility] - 01 BUN/creat ratio 18 10 - 24 [facility] - 01 Sodium 141 134 - 144 mmol/L [facility] - 01 Potassium, sr 4.9 3.5 - 5.2 mmol/L [facility] - 01 Chloride 103 96 - 106 mmol/L [facility] - 01 CO2 23 20 - 29 mmol/L [facility] - 01 Calcium 9.6 8.6 - 10.2 mg/dL [facility] - 01 Protein, sr 6.8 6.0 - 8.5 g/dL [facility] - 01 Albumin 4.3 3.9 - 4.9 g/dL [facility] - 01 Globulin, Total 2.5 1.5 - 4.5 g/dL [facility] - 01 Bilirubin, Total 0.7 0.0 - 1.2 mg/dL [facility] - 01 Alk phos 71 47 - 123 IU/L [facility] - 01 Comment:Please note refere nce interval change AST 16 0 - 40 IU/L [facility] - 01 ALT 12 0 - 44 IU/L [facility] - 01 Blood 12/20/2024 8:22 AM CDT 12/20/2024 Narrative [facility] - 12/21/2024 8:12 AM CDT Performed at: - [address] [id number] Molder Labels: Greg Garnett PhD, Phone: [phone] us Jared Levin MD LAB BLOOD ORDERABLES Final Re sult [facility] - 01 * Stool DNA - Cologuard (11/20/2024) Stool Historical Provider LAB BODY FLUIDS AND STOOL S ORDERABLES Final Result [facility] * DIABETES EYE EXAM (06/07/2023) SCRIBED DIABETIC DILATED EYE EXAM Normal Historical Provider HEALTH MAINTENANCE Final Result from Last 3 Months or Most Recently Relevant to Health Maintenance Insurance [employer] Care Teams Feather Washer Relationship Specialty Start Date End Date Jared Levin MD [address] [place] [address] PCP - General Family Medicine 12/25/24
--- OUTSIDE RECORDS SUMMARY | 2025-01-19 01:43 | XMS_ITS | Encounter Summary ---
Author Organization [facility] Healthcare Address [address] [place] [address] Care Team Providers Care Quality Assurance Supervisor Chassis Name Role Phone Jared Levin MD Primary Care Provider [phone] Reason for Referral * Consultation (Routine) - Authorized Specialty Diagnoses / Procedures Referred By Contac t Referred To Contact Urology Diagnoses Elevated PSA Adele Hogue PA [address] [place] [address] [address] [place] [phone] Phone: tel: fax: [facility] Surgery [address] [place] [address] [place] [phone] Phone: tel: Referral ID Status Reason Start Date Expiration Date Visits Requested Visits Authorized [id number] Authorized Specialty Services Required 02/16/2026 1 1 Question Answer Please select the performing region: External Order [[id number]] # of visits: 1 Comments Elevated PSA Encounter Details Date Type Department Care Team (Late st Contact Info) Description 01/15/2025 Results Follow-Up [facility] Family Medicine at [address] [place] [id number] Adele Hogue PA [address] [place] [address] [address] Albumin Creatinine Ratio, Urine, CBC with auto differential, Comprehensive metabolic panel, Additional followed-up results: 2 Social History [...] on file 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 Gender Identity Male 06/15/2022 5:35 PM CDT Sexual Orientation Not on file documented as of this encounter Plan of Treatment Scheduled Referrals Name Type Priority Associated Diagnoses Order Schedule Ambulatory referral to Urology Outpatient Referral Routine Elevated PSA Expected: 01/31/2025 (Approximate), Expires: 01/17/2026 documented as of this encounter Visit Diagnoses Diagnosis Elevated PSA- Primary Elevated prostate specific antigen (PSA) documented in this encounter Care Teams Quality Assurance Supervisor Chassis Relationship Specialty Start Date End Date Jared Levin MD [address] [place] [address] [place] [id number] PCP - General Family Medicine 12/25/24 documented as of this encounter
== END 2025-01-19 05:19 | disposition home or self-care (01) ==
PROVIDERS: Student in an Organized Health Care Education/Training Program; Emergency Provider Physician Assistant; PCP Family Medicine
DX: N13.2 Hydronephrosis with renal and ureteral calculous obstruction (principal); I10 Essential (primary) hypertension; E11.9 Type 2 diabetes mellitus without complications; E78.5 Hyperlipidemia, unspecified; K42.9 Umbilical hernia without obstruction or gangrene; K40.20 Bilateral inguinal hernia, without obstruction or gangrene, not specified as recurrent; K44.9 Diaphragmatic hernia without obstruction or gangrene
CPT/HCPCS: 36415; 74176; 80053; 81001; 85025; 96374; 96375; 99284; J2270; J2405